=== PATIENT | female | born 1965 | race Caucasian/White ===

== ENCOUNTER 2020-10-30 23:17 | Inpatient (IN) | payer OTHER, SELFPAY ==
[2020-10-30 23:19] VITALS: BP 103/70; PULSE 89; RESP 16; O2SAT 100; BMI 25.3
--- NOTE | 2020-10-30 23:20 | W.ED.LOWEXIN ---
HPI - Extremity Injury (Lower) General: Chief Complaint: Extremity Injury, Lower Stated Complaint: bilateral knee pain/ fall Time Seen by Provider: 10/30/20 23:19 History of Present Illness: HPI Narrative: A 55-year-old female comes in this evening for complaints of injury to the left lower leg. Patient reports tripping and falling over her dog and there travel trailer causing her to hit both knees against the ground and then fall backwards. Patient reports both legs were under her body at that time. Since then patient has noticed swelling to the left lower leg and inability to bear weight comfortably on it. Patient also reports left hip pain and bilateral knee pain. Patient was brought in by EMS and was given 100 mg of fentanyl in route. Patient has a history of gastric bypass, coronary artery disease, and diabetes. Patient last stent was placed in November of last year. Patient does take Metformin and Plavix along with metoprolol and lisinopril. Review of Systems General: Reports: 10 or more systems reviewed and unremarkable except in HPI and below Musc: Reports: other (Bilateral knee pain, left lower leg pain,) PFSH ED PFSH: Medical History (Updated 10/31/20 @ 00:50 by Jax Mack MD) History of coronary artery disease History of fibromyalgia History of hyperlipidemia History of hypertension Non-insulin dependent type 2 diabetes mellitus Surgical History (Updated 10/31/20 @ 00:50 by Jax Mack MD) History of arthroscopy of right knee History of gastric bypass Family History (Updated 10/31/20 @ 00:50 by Jax Mack MD) Other CAD (coronary artery disease) Social History (Updated 10/31/20 @ 00:50 by Jax Mack MD) Smoking and tobacco status: current every day smoker Alcohol intake: current Alcohol intake frequency: holidays/special occasions only Substance/Drug Use: never Physical Exam Const: COMMON NORMALS: no acute distress and patient oriented x3 GENERAL APPEARANCE: cooperative HENMT: COMMON NORMALS: normocephalic and Normal external nose present HEAD & SCALP: normal to inspection and normocephalic NOSE: Normal external nose present MOUTH: Normal oral and palatal mucosa present Eye: GENERAL EYE: appearance normal, both eyes and all related structures Neck/C-Spine: COMMON NORMALS: full ROM Chest: COMMONS NORMALS: normal inspection of the chest Resp: COMMON NORMALS: normal respiratory effort EFFORT & INSPECTION: Yes able to speak in complete sentences Cardio: COMMON NORMALS: regular rate and regular rhythm RATE: regular rate RHYTHM: regular rhythm GI: COMMON NORMALS: non-tender Back/Pelvis: COMMON NORMALS: thoracic and lumbar spine normal to inspection Extremity: NARRATIVE EXTREMITY EXAM: Patient has some mild suprapatellar swelling to bilateral lower knees. Patient also has significant swelling to the left lower leg calf. Pulses are intact distally bilateral. Patient has difficulty with moving left lower leg due to pain. Patient also has some left hip tenderness. Neuro: COMMON NORMALS: patient oriented x3 and moves all extremities Psych: COMMON NORMALS: mental status grossly normal and cooperative Skin: COMMON NORMALS: no rashes or lesions noted GENERAL SKIN EXAM: no rashes or lesions noted Course ED course: 2314 reviewed x-rays with Dr. Kothari he recommended we talk to Dr. Humphresy about fracture. [address] Humphreys suggestions for discharge to home or admission to the hospital. Patient feels that she cannot take care of herself at home due to pain and inability to get up to the bathroom. Consultations: Consultation #1: Discussed with Dr. Humphreys patient's fracture which is a proximal tibial fracture and proximal fibular fracture which fairly good alignment. He recommended splinting and patient could follow-up in the office but if he does not think that she could tolerate pain or be able to care for herself at home he recommended admission to hospitalist and he would plan for surgery on Sunday. Time: 00:01 Time: 00:15 Consultation #3: Discussed with Dr. Munoz for patient to be admitted to care for pain control and displaced tibial fracture with plan for surgical repair on Sunday morning. He agreed to come see the patient for admission. Vital Signs: Vital signs: Vital Signs Pulse Rate 80 10/30/20 23:26 Respiratory Rate 16 10/30/20 23:26 Blood Pressure 103/70 10/30/20 23:26 Pulse Oximetry 100 10/30/20 23:26 MDM - Extremity Injury (Lower) MDM Narrative: Medical decision making narrative: Of injury to the left lower extremity. Patient had fallen over her pet and had landed on both of her knees. Patient had significant discomfort to the left knee. On exam patient has significant swelling to bilateral knees with the left being worse than the right. Patient also had extension of swelling into the left lower leg. Pulses were intact distally. Sensation was intact distally. Patient was unable to bear any weight to the left lower extremity. Differential diagnosis includes but not limited to fracture of the tibia and fibula, hematoma, contusion. X-ray noted a proximal tibial fracture with mild displacement. I reviewed this with Dr. Humphreys, surgical orthopedist, he agreed to surgical care of patient with plan for fracture repair on Sunday. I discussed with patient options about admission or splinting and released to home. Patient felt that she could not care for herself at home and could not control her pain well at home. I reviewed this with the hospitalist who agreed to plan for admission. Discharge Plan Discharge Patient Disposition: Admitted As Inpatient Clinical Impression: Tibia/fibula fracture Qualifiers: Encounter type: initial encounter Fracture type: closed Laterality: left Qualified Code(s): S82.202A - Unspecified fracture of shaft of left tibia, initial encounter for closed fracture Condition: Stable Coding Level of Care Code ED Post Anesthesia Nurse for Miguelina Lopez Exam Comprehensive
--- NOTE | 2020-10-30 23:24 | XRR_ITS ---
PROCEDURE INFORMATION: Exam: XR Left Knee Exam date and time: 10/30/2020 11:24 PM Age: 55 years old Clinical indication: Injury or trauma; Fall; Blunt trauma; Knee; Left; Injury details: Fell today; Additional info: Fall, swelling TECHNIQUE: Imaging protocol: XR Left knee. Views: 1 or 2 views. COMPARISON: No relevant prior studies available. FINDINGS: Bones/joints: The there is acute nondisplaced comminuted fracture of the proximal left tibial metaphysis; There is an acute nondisplaced fracture of the proximal left fibular metaphysis. Soft tissues: Normal. XR/XR knee LT 1-2V [id number] IMPRESSION: 1. Acute comminuted nondisplaced fracture the proximal left tibial metaphysis 2. Acute nondisplaced fracture of proximal left fibular metaphysis
--- NOTE | 2020-10-30 23:24 | XRR_ITS ---
PROCEDURE INFORMATION: Exam: XR Left Tibia and Fibula Exam date and time: 10/30/2020 11:24 PM Age: 55 years old Clinical indication: Injury or trauma; Fall; Blunt trauma; Lower leg; Left; Injury details: Fell today; Additional info: Fall swelling TECHNIQUE: Imaging protocol: XR Left tibia and fibula. Views: 2 views. COMPARISON: No relevant prior studies available. FINDINGS: Bones/joints: There is an oblique nondisplaced fracture proximal left tibial diaphysis. Soft tissues: Normal. XR/XR tibia fibula LT 2V [id number] IMPRESSION: Acute nondisplaced oblique fracture of the proximal left tibial diaphysis.
--- NOTE | 2020-10-30 23:24 | XRR_ITS ---
PROCEDURE INFORMATION: Exam: XR Pelvis Exam date and time: 10/30/2020 11:24 PM Age: 55 years old Clinical indication: Injury or trauma; Fall; Blunt trauma (contusions or hematomas); Does not apply; Pelvic region; Injury details: Fell today TECHNIQUE: Imaging protocol: XR pelvis. Views: 1 or 2 view. COMPARISON: No relevant prior studies available. FINDINGS: Bones/joints: Unremarkable. No acute fracture. Soft tissues: Unremarkable. XR/XR pelvis 1-2V* [id number] IMPRESSION: No acute findings.
--- NOTE | 2020-10-30 23:24 | XRR_ITS ---
PROCEDURE INFORMATION: Exam: XR Right Knee Exam date and time: 10/30/2020 11:24 PM Age: 55 years old Clinical indication: Injury or trauma; Fall; Blunt trauma; Knee; Right; Injury details: Fell today; Additional info: Fall swelling TECHNIQUE: Imaging protocol: XR Right knee. Views: 3 views. COMPARISON: No relevant prior studies available. FINDINGS: Bones/joints: There is a small anterior joint effusion. Soft tissues: Normal. XR/XR knee RT 3V* [id number] IMPRESSION: 1. There are no acute osseous findings. 2. Small anterior joint effusion
[2020-10-30 23:26] VITALS: BP 103/70; PULSE 80; RESP 16; O2SAT 100
[2020-10-30] MEDS: morphine 4 mg/mL SDV 1 mL IVP (23:31)
[2020-10-31] VITALS (20 sets, daily range): BP systolic 127–166; BP diastolic 75–81; PULSE 60–86; RESP 14–19; TEMP 36.4–37; O2SAT 95–100; BMI 28.1
--- NOTE | 2020-10-31 00:45 | PM.HP ---
Providers/Chief Complaint Primary Care Provider: Jacquelyn Jay MD Chief Complaint: bilateral knee pain/ fall History of Present Illness Laisha Taylor is a 55 year old female with a past medical history of CAD status post 6 stents, 3 stents placed in November 2019, on aspirin and Plavix, fibromyalgia, hypertension, hyperlipidemia, GERD, [id number] type 2 diabetes mellitus, who presents [facility] due to fall. Patient tells me that she tripped and fell over her dog, she fell on both her knees, and then fell backwards, denies any preceding lightheadedness, no dizziness, no chest pain, no palpitations, no seizure-like episodes, no strokelike symptoms. She started to notice significant swelling over left lower extremity starting from the knee down to the ankle, she presented to [facility] due to significant left knee pain, inability to bear weight, and the emergency room she was noticed to have a proximal tibial fracture with mild displacement, Dr. Humphreys was consulted, who recommended splint placement, as patient cannot bear any weight, will proceed with surgical intervention on Sunday. Hospitalist team was called for admission, currently patient is received 4 of morphine, pain is well controlled, does have swelling of left knee down to the level of the ankle, denies chest pain, no palpitations, no shortness of breath, no headache, blurry vision, no nausea, vomiting Review of Systems Const: Denies: fever(s), chills, fatigue or malaise Eyes: Denies: change in vision or blurry vision ENMT: Denies: throat pain Card: Denies: chest pain, palpitations, irregular heart rhythm, edema, syncope or pre-syncope Resp: Denies: dyspnea, productive cough, non-productive cough or wheezing GI: Denies: abdominal pain, nausea, vomiting, hematemesis, diarrhea, constipation, hematochezia or melena : Denies: flank pain, dysuria or urinary frequency Musc: Reports: extremity pain and joint pain; Denies: neck pain or back pain Skin/Breast: Denies: rash Neuro: Denies: headache(s), dizziness or vertigo Endo: Denies: polyuria or polydipsia Medications/Allergies Home Medications Medication Instructions Recorded Confirmed Last Taken Type Aspir-81 81 mg PO DAILY 10/31/20 10/31/20 Unknown History Calcium + Vitamin D 1 tab PO DAILY 10/31/20 10/31/20 Unknown History Colace 100 mg PO DAILY 10/31/20 10/31/20 Unknown History Plavix 75 mg PO DAILY 10/31/20 10/31/20 Unknown History Vitamin D3 1 tab PO DAILY 10/31/20 10/31/20 Unknown History atorvastatin 80 mg PO DAILY 10/31/20 10/31/20 Unknown History duloxetine 60 mg PO DAILY 10/31/20 10/31/20 Unknown History gabapentin 800 mg PO TID 10/31/20 10/31/20 Unknown History iron fum-vit C-ascorbate sod 1 tab PO DAILY 10/31/20 10/31/20 Unknown History lisinopril 20 mg PO DAILY 10/31/20 10/31/20 Unknown History magnesium oxide 400 mg PO DAILY 10/31/20 10/31/20 Unknown History metformin 1,000 mg PO BID 10/31/20 10/31/20 Unknown History metoprolol tartrate 25 mg PO BID 10/31/20 10/31/20 Unknown History pantoprazole 40 mg PO DAILY 10/31/20 10/31/20 Unknown History Allergies Allergy/AdvReac Type Severity Reaction Status Date / Time NSAIDS (Non-Steroidal Allergy ADR-Gastrointestinal Verified 10/30/20 23:26 Anti-Inflamma Upset PFSH Acute PFSH: Medical History (Updated 10/31/20 @ 00:50 by Jax Mack MD) History of coronary artery disease History of fibromyalgia History of hyperlipidemia History of hypertension Non-insulin dependent type 2 diabetes mellitus Surgical History (Updated 10/31/20 @ 00:50 by Jax Mack MD) History of arthroscopy of right knee History of gastric bypass Family History (Updated 10/31/20 @ 00:50 by Jax Mack MD) Other CAD (coronary artery disease) Social History (Updated 10/31/20 @ 00:50 by Jax Mack MD) Smoking and tobacco status: current every day smoker Alcohol intake: current Alcohol intake frequency: holidays/special occasions only Substance/Drug Use: never Vitals/I&O/Wt Last Vital Signs Pulse 80 10/30/20 23:26 Resp 16 10/30/20 23:26 BP 103/70 10/30/20 23:26 Pulse Ox 100 10/30/20 23:26 Weight last 48 hrs Weight 73.482 kg Physical Exam Const: COMMON NORMALS: no acute distress and patient oriented x3 GENERAL APPEARANCE: cooperative and comfortable HENMT: COMMON NORMALS: normocephalic HEAD & SCALP: normocephalic Eye: COMMON NORMALS: Equal, round and reactive pupils present and EOMs intact bilaterally GENERAL EYE: appearance normal, both eyes and all related structures PUPIL: Yes Equal, round and reactive pupils present Neck/C-Spine: COMMON NORMALS: full ROM and no lymphadenopathy THYROID: Thyroid normal Lymph: LYMPHATIC: no lymphadenopathy noted Resp: COMMON NORMALS: normal respiratory effort, No retractions, No use of accessory muscles and clear to auscultation bilaterally AUSCULTATION: clear to auscultation bilaterally Cardio: COMMON NORMALS: regular rate, regular rhythm, S1 normal heart sound present and S2 normal heart sound present RATE: regular rate RHYTHM: regular rhythm HEART SOUNDS: S1 normal heart sound present, S2 normal heart sound present and Murmur heart sound present systolic GI: COMMON NORMALS: Normal to inspection, nondistended, normoactive bowel sounds present, Soft to palpation, non-tender and No hepatosplenomegaly present PALPATION: Yes Soft to palpation and Yes No hepatosplenomegaly present Extremity: COMMON NORMALS: no pedal edema NARRATIVE EXTREMITY EXAM: Left lower extremity, swelling, from the knee down to the ankle, left knee swelling, erythema, tenderness Neuro: COMMON NORMALS: patient oriented x3, CN's II-XII intact bilaterally, moves all extremities and no focal motor deficits Psych: COMMON NORMALS: mental status grossly normal, Normal thought process present and cooperative THOUGHT PROCESS: Normal thought process present A&P Assessment and plan (1) Tibia/fibula fracture: Plan -Orthopedic on surgical consult -CBC, CMP, mag, Phos, EKGs, chest x-ray, UA, troponin, BNP -Discuss with surgical service, as patient is on Plavix- -Pain control Dilaudid -PT OT -Plan for surgical intervention on Sunday -Full code -Lovenox for DVT prophylaxis Noninsulin-dependent type 2 diabetes mellitus, continue low-dose sliding scale Hypertension, continue lisinopril, continue metoprolol CAD, continue aspirin, continue Plavix Fibromyalgia, continue home meds Status: Acute Qualifiers: Encounter type: initial encounter Fracture type: closed Laterality: left Qualified Code(s): S82.202A - Unspecified fracture of shaft of left tibia, initial encounter for closed fracture; S82.402A - Unspecified fracture of shaft of left fibula, initial encounter for closed fracture Attestations Medical Necessity Statement*: Patient requires hospitalization, outpatient with observation, for tib-fib fracture Coding Level of Care Code Acute Systems Protection Technician for [facility] Diagnoses Tibia/fibula fracture S82.202A; S82.402A Encounter type: initial encounter Fracture type: closed Laterality: left
--- NOTE | 2020-10-31 01:47 | XRR_ITS ---
PROCEDURE INFORMATION: Exam: XR Chest Exam date and time: 10/31/2020 1:47 AM Age: 55 years old Clinical indication: Patient HX: Fell today no chest complaints; Additional info: Fall TECHNIQUE: Imaging protocol: XR of the chest. Views: 1 view. COMPARISON: No relevant prior studies available. FINDINGS: Lungs: Unremarkable. No consolidation. Pleural spaces: Unremarkable. No pleural effusion. No pneumothorax. Heart/Mediastinum: Unremarkable. No cardiomegaly. Bones/joints: Unremarkable. XR/XR chest 1V portable [id number] IMPRESSION: No acute findings.
[2020-10-31] MEDS: HYDROmorphone 1 mg/mL INJ 1 mL IVP ×4 (02:15→19:51)
--- NOTE | 2020-10-31 02:54 | ECG_ITS ---
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 Measurements Intervals [place] Rate: 75 P: 43 ID: 158 QRS: -16 QRSD: 101 T: 29 QT: 430 QTc: 482 Interpretive Statements SINUS RHYTHM POSSIBLE LATERAL MYOCARDIAL INFARCTION , PROBABLY OLD [30 ms Q WAVE IN I/aVL/V5/V6] Possible old inferior wall [place] No previous ECG available for comparison Electronically Signed On 10-31-2020 18:15:49 CDT by Kenna Michael M.D. [id number]
[2020-10-31] MEDS: enoxaparin 40 mg/0.4 mL Syringe SUBCUT (02:56)
[2020-10-31 02:58] LABS: Troponin(5th) Baseline 10 ng/L (0-10)
[2020-10-31 03:05] LABS: NT Pro B Type Natriuretic Pept 686 pg/mL (0-125)
--- NOTE | 2020-10-31 06:54 | ECG_ITS ---
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 Measurements Intervals [place] Rate: 66 P: 33 TN: 166 QRS: -19 QRSD: 102 T: 14 QT: 411 QTc: 431 Interpretive Statements SINUS RHYTHM INFERIOR MYOCARDIAL INFARCTION , PROBABLY OLD [40+ ms Q WAVE AND/OR ST/T ABNORMALITY IN II/aVF] ANTEROLATERAL MYOCARDIAL INFARCTION , OF INDETERMINATE AGE [40+ ms Q WAVE IN I/aVL/V3-V6] Compared to ECG 10/31/2020 02:29:58 No significant changes Electronically Signed On 10-31-2020 18:16:05 CDT by Kenna Michael M.D. [id number]
[2020-10-31 07:05] LABS: Troponin 5 2HR 10.59 ng/L (0-10)
[2020-10-31 07:10] LABS: Glucose Point of Care 162 mg/dL (70-110)
[2020-10-31 07:53] LABS: Troponin 5 2HR Delta 0.59 ABS# (0-10)
--- NOTE | 2020-10-31 08:14 | P.CONIM_ITS ---
Providers/Reason For Consult Consulting Physician/Specialty*: hospitalist Reason for Consult*: tibia fracture Attending Physician: Danelle Key MD Primary Care Provider: Jacquelyn Jay MD History of Present Illness History of Present Illness Laisha Taylor is a 55 year old female she tripped and fell over her dog, she fell on both her knees, and then fell backwards, denies any preceding lightheadedness, no dizziness, no chest pain, no palpitations, no seizure-like episodes, no strokelike symptoms. She started to notice significant swelling over left lower extremity starting from the knee down to the ankle, she presented to [facility] due to significant left knee pain, inability to bear weight, and the emergency room she was noticed to have a proximal tibial fracture with mild displacement Review of Systems General: Reports: 10 or more systems reviewed and unremarkable except in HPI and below Const: Denies: fever(s), chills, fatigue or malaise Eyes: Denies: change in vision or blurry vision ENMT: Denies: throat pain Card: Denies: chest pain, palpitations, irregular heart rhythm, edema, syncope or pre-syncope Resp: Denies: dyspnea, productive cough, non-productive cough or wheezing GI: Denies: abdominal pain, nausea, vomiting, hematemesis, diarrhea, constipation, hematochezia or melena : Denies: flank pain, dysuria or urinary frequency Musc: Reports: extremity pain, joint pain and other (Bilateral knee pain, left lower leg pain,); Denies: neck pain or back pain Skin/Breast: Denies: rash Neuro: Denies: headache(s), dizziness or vertigo Endo: Denies: polyuria or polydipsia Meds/Allergies Home Medications and Allergies Home Medications Medication Instructions Recorded Confirmed Last Taken Type Aspir-81 81 mg PO DAILY 10/31/20 10/31/20 Unknown History Calcium + Vitamin D 1 tab PO DAILY 10/31/20 10/31/20 Unknown History Colace 100 mg PO DAILY 10/31/20 10/31/20 Unknown History Plavix 75 mg PO DAILY 10/31/20 10/31/20 Unknown History Vitamin D3 1 tab PO DAILY 10/31/20 10/31/20 Unknown History atorvastatin 80 mg PO DAILY 10/31/20 10/31/20 Unknown History duloxetine 60 mg PO DAILY 10/31/20 10/31/20 Unknown History gabapentin 800 mg PO TID 10/31/20 10/31/20 Unknown History iron fum-vit C-ascorbate sod 1 tab PO DAILY 10/31/20 10/31/20 Unknown History lisinopril 20 mg PO DAILY 10/31/20 10/31/20 Unknown History magnesium oxide 400 mg PO DAILY 10/31/20 10/31/20 Unknown History metformin 1,000 mg PO BID 10/31/20 10/31/20 Unknown History metoprolol tartrate 25 mg PO BID 10/31/20 10/31/20 Unknown History pantoprazole 40 mg PO DAILY 10/31/20 10/31/20 Unknown History Allergies Allergy/AdvReac Type Severity Reaction Status Date / Time NSAIDS (Non-Steroidal Allergy ADR-Gastrointestinal Verified 10/30/20 23:26 Anti-Inflamma Upset Current Medications Current Medications Generic Name Dose Route Start Last Admin Trade Name Freq PRN Reason Stop Dose Admin Enoxaparin Sodium 40 mg 10/31/20 01:47 10/31/20 02:56 Enoxaparin 40 Mg/0.4 Ml Syringe SUBCUT 40 mg Q24H EMERALD Administration Hydromorphone HCl 1 mg 10/31/20 01:47 10/31/20 05:47 Hydromorphone 1 Mg/Ml Inj 1 Ml IVP 1 mg Q4H PRN Administration PAIN PFSH Acute PFSH: Medical History (Updated 10/31/20 @ 00:50 by Jax Mack MD) History of coronary artery disease History of fibromyalgia History of hyperlipidemia History of hypertension Non-insulin dependent type 2 diabetes mellitus Surgical History (Updated 10/31/20 @ 00:50 by Jax Mack MD) History of arthroscopy of right knee History of gastric bypass Family History (Updated 10/31/20 @ 00:50 by Jax Mack MD) Other CAD (coronary artery disease) Social History (Updated 10/31/20 @ 00:50 by Jax Mack MD) Smoking and tobacco status: current every day smoker Alcohol intake: current Alcohol intake frequency: holidays/special occasions only Substance/Drug Use: never Vitals/I&O/Wt Last Vital Signs Temp 97.5 F L 10/31/20 07:46 Pulse 79 10/31/20 07:46 Resp 16 10/31/20 07:46 BP 166/81 10/31/20 07:46 Pulse Ox 100 10/31/20 07:46 10/30/20 10/31/20 10/31/20 22:59 06:59 14:59 Output Total 0 / 0 Balance 0 / 0 Weight last 48 hrs Weight 180 lb 9.6 oz Weight 180 lb Weight 162 lb Physical Exam Narrative: EXAM NARRATIVE: CONSTITUTIONAL: The patient is a normal appearing [] in no apparent distress. GENERAL: Patient in no acute distress. CARDIAC: Regular rate and rhythm. CHEST: Normal inspiratory effort, normal respiratory rate. ABDOMEN: Soft and nontender. SKIN: Clear, warm and intact. NEURO?PSYCH: The patient is alert and oriented to person, place and time. Sensorv /SILT Motor StrengthShoulder abduction C5 5/5Wrist extension C6 5/5E lbow extension C7 5/5Hand Pigment Furnace Tender C8 5/5Finger abduction T15/5 Radial/ Ulnar/ Median n intact LowerSensory (SILT)Motor StrengthHin flexion L2/3Ant/inner thigh 5/5Hip adduction L2/3 5/5Knee extension L4 Lat thigh, 5/5Toe dorsiflexion L5 5/5Ankle dorsiflexion L5/ [id number] flexion S1 5/5 DTRBleeps 2+Triceps 2+Brachioradialis 2+Patellar 2+Achilles 2+ MUSCULOSKELETAL: [] UPPEREXTREMITIES: The patient had full active ROM in fingers, wrist, elbow, and shoulder. The patient demonstrated ability to fully flex/extend/abduct/adduct fingers, make ok sign, cross 2nd/3rd digits, extend 1st digit fully.. Radial pulse 2+, CR<2 seconds. LOWER EXTREMITIES: Pt has full, active ROM of toes, Right knee extremely swollen; Left leg in splint moving toes with no pain good capilary refill A&P Assessment and plan (1) Tibia/fibula fracture: Patient has a left proximal tibia fracture. At this point I would like to get a CT scan of her left knee. I will plan to take her to surgery tomorrow. Depending on how swollen she is if she has significant swelling I will have to place her in an external fixator. And then do the definitive treatment 2 weeks later. If the swelling is down enough tomorrow then I can do the definitive treatment tomorrow. Today she needs to get ice on her leg is much as possible. I would also like to get a CT scan of her right knee since she has significant swelling of this knee as well. She should remain nonweightbearing until we get the evaluation of both his knees. 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
[2020-10-31] MEDS: metoprolol tartrate 25 mg Tablet PO ×2 (08:16→20:26)
[2020-10-31] MEDS: duloxetine 60 mg Capsule PO (08:16)
[2020-10-31] MEDS: lisinopril 20 mg Tablet PO (08:16)
[2020-10-31] MEDS: pantoprazole DR 40 mg Tablet PO ×2 (08:16→17:30)
[2020-10-31] MEDS: aspirin 81 mg EC Tablet PO (08:16)
[2020-10-31] MEDS: gabapentin 400 mg Capsule 800 MG PO ×3 (08:16→20:26)
[2020-10-31] MEDS: acetaminophen 325 mg Tablet 650 MG PO (08:17)
[2020-10-31] MEDS: clopidogrel 75 mg Tablet PO (08:20)
--- NOTE | 2020-10-31 08:23 | CTR_ITS ---
PROCEDURE INFORMATION: Exam: CT Left Lower Extremity Without Contrast, Knee Exam date and time: 10/31/2020 8:23 AM Age: 55 years old Clinical indication: Pain; Knee; Left; Additional info: Left tibial plateau fracture TECHNIQUE: Imaging protocol: CT of the Left lower extremity without contrast was performed. Exam focused on the knee. Radiation optimization: All CT scans at this facility use at least one of these dose optimization techniques: automated exposure control; mA and/or kV adjustment per patient size (includes targeted exams where dose is matched to clinical indication); or iterative reconstruction. COMPARISON: CR (LOW EXM, ) 10/30/2020 11:26 PM RADIATION DOSE METRICS: Total DLP (mGy-cm): 180.13 FINDINGS: Bones/joints: Nondisplaced comminuted tibial plateau fracture extending to the articular surface at the tibial spine/lateral tibial plateau. Nondisplaced fracture through the proximal fibula. Associated hemarthrosis. Soft tissues: Normal. CT/CT knee LT wo con* [id number] IMPRESSION: 1. Nondisplaced comminuted tibial plateau fracture with associated hemarthrosis. 2. Nondisplaced fracture through the proximal fibula. Radiation Dose CTDIVOL = (mGy): DLP = 180.13 (mGy-cm)
--- NOTE | 2020-10-31 08:23 | CTR_ITS ---
PROCEDURE INFORMATION: Exam: CT Right Lower Extremity With Contrast, Knee Exam date and time: 10/31/2020 8:23 AM Age: 55 years old Clinical indication: Pain; Knee; Right; Additional info: Severe knee swelling TECHNIQUE: Imaging protocol: CT of the Right lower extremity with intravenous contrast was performed. Exam focused on the knee. Radiation optimization: All CT scans at this facility use at least one of these dose optimization techniques: automated exposure control; mA and/or kV adjustment per patient size (includes targeted exams where dose is matched to clinical indication); or iterative reconstruction. Contrast material: OMNIPAQUE 300; Contrast volume: 95 ml; Contrast route: INTRAVENOUS (IV); COMPARISON: CR (LOW EXM, ) 10/30/2020 11:37 PM RADIATION DOSE METRICS: Total DLP (mGy-cm): 173.21 FINDINGS: Bones/joints: Minimally displaced avulsed fragment of the tibial spine. Associated hemarthrosis. Soft tissues: Normal. CT/CT knee RT w con [id number] IMPRESSION: Minimally displaced avulsed fracture fragment of the tibial spine with associated hemarthrosis. Radiation Dose CTDIVOL = (mGy): DLP = 173.21 (mGy-cm)
[2020-10-31] MEDS: ketorolac 30 mg/mL INJ IVP ×3 (09:23→23:48)
[2020-10-31] MEDS: amlodipine 10 mg Tablet PO (09:24)
--- NOTE | 2020-10-31 09:30 | PC.OT ---
Therapist reviewed OT orders. Patient is currently awaiting additional CT scan as well as surgery tomorrow (11/01) per Dr. Humphreys notes. Will evaluate when appropriate. Keegan Valenzuela OTR/L
[2020-10-31 09:49] LABS: Troponin 5 6HR 10.76 ng/L (0-10); Troponin 5 6HR Delta 0.76 ng/L (0-12)
[2020-10-31 11:08] LABS: Glucose Point of Care 180 mg/dL (70-110)
[2020-10-31] MEDS: HYDROcodone-acetaminophen 5-325 mg Tablet 1 TAB PO ×3 (11:28→20:26)
[2020-10-31] MEDS: nicotine 21 mg Patch 1 PATCH TRANSDERMA (11:29)
[2020-10-31 11:50] LABS: Add Urine Microscopic? YES; Bilirubin Urine Neg (Negative); Blood Urine Neg (Negative); Glucose Urine UA Trace (Normal); Ketones Urine Negative (Negative); Leukocyte Esterase Urine Trace (Negative); Nitrate Urine Negative (Negative); Protein Urine Neg (Negative); Urine Appearance Clear (CLEAR); Urine Color Yellow (Yellow); Urobilinogen Urine Norm (Negative); pH Urine 7 (5-7)
[2020-10-31 11:52] LABS: Add Urine Culture? No; Bacteria Urine TRACE /hpf; Squamous Epithelial Cell Urine 0-4 /hpf (0-5)
--- NOTE | 2020-10-31 12:11 | P.PN_ITS ---
Subjective Subjective: Interval history: Patient seen and examined this morning. She stated that she tripped and fell over her dog and she fell on both her knees and fell backwards. She is unable to bear weight and was found to have proximal tibial fracture with mild displacement. Dr. Darby was consulted from the ER who recommended splint placement. He also ordered left and right leg CT scanning. Plan is to go for surgical intervention on Sunday. Patient states she is not in pain but her pain regiment which was recently changed by Dr. Humphreys. She states if it is not under control she will have the nurse page me again. For now she has no complaints. Her cardiac PCI was November 2019 and she had 3 stents placed and she has been on aspirin and Plavix. Her diabetes mellitus has been well controlled on Metformin. Her last A1c was 6.9. Vitals/I&O/Wt Last Vital Signs Temp 97.9 F 10/31/20 11:38 Pulse 68 10/31/20 11:38 Resp 19 H 10/31/20 11:38 BP 163/81 10/31/20 11:38 Pulse Ox 99 10/31/20 11:38 10/30/20 10/31/20 10/31/20 22:59 06:59 14:59 Intake Total 360 / 360 Output Total 0 / 0 400 / 400 Balance 0 / 0 -40 / -40 Weight last 48 hrs Weight 81.919 kg Weight 81.647 kg Weight 73.482 kg Physical Exam Narrative: EXAM NARRATIVE: General: Alert oriented x3, patient seen laying in bed with left leg wrapped up to thigh. She appears to be in pain when she tries to move in bed. HEENT: Normocephalic, atraumatic, EOMI, breathing room air Cardio: Regular rate rhythm, normal S1-S2, no murmurs rubs gallops, Respiratory: Good bilateral air entry, no wheezes no rhonchi appreciated GI: Abdomen soft, nontender, nondistended, bowel sounds + Behavior: Appropriate and cooperative Extremities: Data very limited exam as patient was in pain when I tried to examine. Left leg was wrapped at bedside and splinted. Right leg appeared nonedematous acyanotic. Left foot. Nonedematous and acyanotic. A&P Assessment and plan (1) Tibia/fibula fracture: Orthopedic: Surgical consult. CT left and right leg pending. We will keep patient n.p.o. overnight for anticipated surgical procedure tomorrow morning. Will follow further recommendations from orthopedic doctor. We will hold Plavix, lisinopril, statin, Lovenox. Will order amlodipine for blood pressure control today. Pain management Diabetes: Jmg-yrprobd-bjwwqiazl type II, patient on low-dose sliding scale. At home she takes Metformin. Last A1c 6.9 as per patient. Hypertension: We will hold lisinopril and switch to amlodipine during hospital stay. Coronary artery disease status post PCI November 2019. Continue aspirin but hold Plavix. Nicotine dependence: Smokes 1 pack/day. Refused nicotine patch when offered. Status: Acute Qualifiers: Encounter type: initial encounter Fracture type: closed Laterality: left Qualified Code(s): S82.202A - Unspecified fracture of shaft of left tibia, initial encounter for closed fracture; S82.402A - Unspecified fracture of shaft of left fibula, initial encounter for closed fracture (2) Hypertension: Status: Acute (3) Diabetes mellitus: Status: Acute (4) Coronary artery disease: Status: Acute (5) Hyperlipidemia: Status: Acute (6) GERD (gastroesophageal reflux disease): Status: Acute Attestations Medical Necessity Statement*: Patient will be going for orthopedic surgery tomorrow morning. 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
[2020-10-31] MEDS: iohexol 300 mg/mL 100 mL Btl IV (14:27)
[2020-10-31 16:44] LABS: Glucose Point of Care 128 mg/dL (70-110)
[2020-10-31 20:39] LABS: Glucose Point of Care 264 mg/dL (70-110)
[2020-11-01] VITALS (30 sets, daily range): BP systolic 118–169; BP diastolic 65–97; PULSE 64–97; RESP 10–22; TEMP 36.3–37.9; O2SAT 93–100
--- NOTE | 2020-11-01 | SCC_ITS ---
Procedure Done: 1. Orif Left tibial plateau fracture 2. Closed treatment right tibial spine 3. Aspiration of Right knee 124.3 seconds of fluoroscopic guidance, for a cumulative dose of 5.78 mGy, was provided to Dr. Humphreys by the radiology department. C-arm images of the LEFT lower leg were saved for the patient's permanent record. [facility]
--- NOTE | 2020-11-01 | XR_ITS ---
WS: [id number] INTRAOPERATIVE TECHNIQUE: 5 Spot fluoroscopic images for intraoperative purposes. FLUOROSCOPY TIME: 124.3 seconds CLINICAL INFORMATION: ORIF COMPARISON: None. FINDINGS: Plate and screw fixation involving the proximal tibia extending to the mid tibial shaft. Hardware debra ears in good position. XR/XR tibia fibula LT 2V [id number] IMPRESSION: Images obtained for intraoperative purposes.
[2020-11-01] MEDS: HYDROcodone-acetaminophen 5-325 mg Tablet 1 TAB PO (04:07)
[2020-11-01] MEDS: HYDROmorphone 1 mg/mL INJ 1 mL IVP ×3 (04:58→20:25)
[2020-11-01 05:16] LABS: Basophils % 0.6 %; Eosinophils # 0.1 10^3/uL (0.0-0.8); Eosinophils % 1.1 %; Hematocrit 27.1 % (37.0-47.0); Hemoglobin 8.5 g/dL (11.5-15.3); Lymphocytes # 1.2 10^3/uL (0.8-4.8); Lymphocytes % 16.3 %; Mean Corpuscular HGB Conc 31.4 g/dL (30.0-36.0); Mean Corpuscular Hemoglobin 25.4 pg (28.0-34.0); Mean Corpuscular Volume 81.1 fl (81-99); Mean Platelet Volume 9.9 fL (7.4-10.4); Monocytes # 0.6 10^3/uL (0.2-0.9); Monocytes % 7.7 %; Neutrophils # 5.28 10^3/uL (1.8-7.7); Nucleated Red Blood Cells % 0 %; Platelet Count 354 10^3/cmm (130-400); Red Blood Count 3.34 10^6/uL (4.1-5.3); Red Cell Distribution Width 18.6 % (12.1-15.1); White Blood Count 7.1 10^3/uL (4.0-10.0)
[2020-11-01 05:26] LABS: INR 0.96 (0.8-1.2)
[2020-11-01 05:31] LABS: Estmated Average Glucose 151; Hemoglobin A1C 6.9 % (4.0-6.0)
[2020-11-01 05:57] LABS: Alanine Aminotransferase 12 U/L (0-33); Albumin Level 2.8 g/dL (3.5-5.2); Alkaline Phosphatase 88 IU/L (35-105); Anion Gap 10.2 (5-19); Aspartate Amino Transferase 11 U/L (0-32); Blood Urea Nitrogen 9 mg/dL (6-20); Carbon Dioxide 27 mmol/L (22-29); Chloride 96 mmol/L (98-107); Globulin 2.6 g/dL (1.3-4.6); Glomerular Filtration Rate 165.7 mL/min (90-130); Glucose 150 mg/dL (65-115); Magnesium 1.5 mg/dL (1.7-2.3); Osmolality Calculated 270 mOsm/kg (285-295); Phosphorus 4.5 mg/dL (2.5-4.5); Potassium 4.2 mmol/L (3.5-5.1); Sodium 129 mmol/L (136-145); Thyroid Stimulating Hormone 0.69 uIU/mL (0.27-4.20); Total Bilirubin 0.2 mg/dL (0.15-1.2); Total Protein 5.4 g/dL (6.6-8.7)
[2020-11-01 06:15] LABS: Glucose Point of Care 192 mg/dL (70-110)
[2020-11-01] MEDS: ketorolac 30 mg/mL INJ IVP ×2 (07:45→17:45)
[2020-11-01] MEDS: gabapentin 400 mg Capsule 800 MG PO ×3 (08:58→20:26)
[2020-11-01] MEDS: metoprolol tartrate 25 mg Tablet PO ×2 (08:59→20:32)
[2020-11-01] MEDS: duloxetine 60 mg Capsule PO (08:59)
[2020-11-01] MEDS: amlodipine 10 mg Tablet PO (08:59)
[2020-11-01] MEDS: pantoprazole DR 40 mg Tablet PO ×2 (08:59→17:43)
--- NOTE | 2020-11-01 09:21 | PC.OT ---
OT EVALUATION HELD UNTIL AFTER SURGERY.
--- NOTE | 2020-11-01 09:51 | W.PM.OPSUD ---
Surgery/Procedure H&P Update DATE OF PROCEDURE: November 01, 2020 DATE H&P PERFORMED: 10/31/20 H&P UPDATE INFORMATION: I have reviewed H&P completed within last 30 days, I have examined patient prior to procedure and No changes to prior documentation PLANNED PROCEDURE: Operation Date: 11/01/20 09:50 Proposed Procedures p ORIF vs Ex Fix left proximal tibia(Left) - Paulo Humphreys DO
--- NOTE | 2020-11-01 10:06 | PC.CHAP ---
Pastoral Care Encounter/Spiritual Assessment Type of Contact [] Declined marine engineering technicians visit [] Patient/Family/Request visit [] Outpatient visit [] Follow-up visit [] Physician referral [] Code/Alert [x] Routine visit [] Staff referral [] Actively dying [] Patient sleeping [] Family support [] [] Out of room [] Palliative care [] [] Receiving care in room [] Pre-surgical visit [] Trauma [] Long length of stay [] ICU visit [] Other: Relational/Emotional Strength [x] Patient feels connected with others/family/visitors/staff [] Distress [] Loneliness/isolation [] Abandonment Spirituality of Patient [x] Person of Nel [] Attends Mormonism of their Nel [x] Believes in Prayer [] Reads Bible or Restorationism materials [] There are Spiritual issues to be addressed Railroad Crossing Protection Maintainer Interventions [x] Prayer [x] Active listening [x] Non-anxious presence [x] Spiritual/emotional support [] Crisis/trauma care [] Spiritual counseling [] Bereavement support [] Provided bereavement packet [] Provided Bible/devotional materials [] Provided toy/stuffed animal, coloring book to patient or family member [] Provided Communion [] Anointing/[place] [] Salvation [x] Completed spiritual assessment [] Other: Impact on Illness or Injury [] Angry [] Fearful [] Anxious [] Often cries [] Exhaustion [] Unable to work [] Unable to attend shinto [] Unable to walk/stand [] Unable to read [] Unable to drive [] Unable to eat/drink [] Unable to sleep [] Unable to be with family [] Patient intubated [] Other: Summary patient has lots mof pai9n ready for suirgert Time spe15 minnt with patient
--- NOTE | 2020-11-01 10:29 | ANES.PREANE2 ---
Pre-Anesthetic Assessment Pre-Anesthetic Assessment: Height/Weight: Height 1.7 m Weight 81.919 kg Temp Pulse Resp BP Pulse Ox 98.1 F 66 18 144/86 100 11/01/20 09:30 11/01/20 09:30 11/01/20 09:30 11/01/20 09:30 11/01/20 09:30 Proposed Procedure: Operation Date: 11/01/20 09:50 Proposed Procedures p ORIF vs Ex Fix left proximal tibia(Left) - Paulo Humphreys, DO Was Beta Anita taken within 24 hours: Yes Was Clonidine taken within 24 hours: N/A Last intake: Intake Last Liquid Date 10/31/20 Last Liquid Time 23:59 Last Solid Date 10/31/20 Last Solid Time 18:00 Social: Social History: Tobacco and No alcohol Exam: Pre-Anes Outpt Exam: alert, oriented x 3 and regular rate & rhythm Airway: Submandibular: WNL Cervical ROM: WNL MP: 2 Dentition: Full Pulmonary: Pulmonary: COPD CV/HEM: CV/HEM: CAD (Stents) and HTN GI: GI: GERD Metabolic: Metabolic: DM and Hyperlipidemia Anesthetic Plan: ASA status: 3 Anesthesia: General Risk of > 500 ml blood loss (7ml/kg in children): No Meds/Allergies Current Medications: Current Medications Generic Name Dose Route Start Last Admin Trade Name Freq PRN Reason Stop Dose Admin Acetaminophen 650 mg 10/31/20 01:47 10/31/20 08:17 Acetaminophen 32 5 Mg Tablet PO 650 mg Q6H PRN Administration Mild/Mod Pain Or Temp >/= 101 Hydrocodone Bitart /Acetaminophen 1 tab 10/31/20 08:20 11/01/20 04:07 Hydrocodone-Acet aminophen 5-325 Mg Tablet PO 1 tab Q4H PRN Administration MODERATE PAIN Amlodipine Besylat e 10 mg 10/31/20 09:00 11/01/20 08:59 Amlodipine 10 Mg Tablet PO 10 mg DAILY EMERALD Administration Aspirin 81 mg 10/31/20 09:00 10/31/20 08:16 Aspirin 81 Mg Ec Tablet PO 81 mg DAILY EMERALD Administration Duloxetine HCl 60 mg 10/31/20 09:00 11/01/20 08:59 Duloxetine 60 Mg Capsule PO 60 mg DAILY EMERALD Administration Gabapentin 800 mg 10/31/20 09:00 11/01/20 08:58 Gabapentin 400 M g Capsule PO 800 mg TID EMERALD Administration Hydromorphone HCl 1 mg 10/31/20 01:47 11/01/20 04:58 Hydromorphone 1 Mg/Ml Inj 1 Ml IVP 1 mg Q4H PRN Administration PAIN Insulin Aspart 0 unit 10/31/20 08:00 11/01/20 08:58 Insulin Aspart 1 00 Unit/1 Ml SUBCUT 4 unit TIDWM EMERALD Administration Protocol Ketorolac Trometha mine 30 mg 10/31/20 08:39 11/01/20 07:45 Ketorolac 30 Mg/ Ml Inj IVP 11/05/20 08:38 30 mg QID PRN Administration PAIN Metoprolol Tartrat e 25 mg 10/31/20 09:00 11/01/20 08:59 Metoprolol Tartr ate 25 Mg Tablet PO 25 mg BID@0900,2100 EMERALD Administration Nicotine 1 patch 10/31/20 11:15 10/31/20 11:29 Nicotine 21 Mg P atch TRANSDERMA 1 patch DAILY EMERALD Administration Pantoprazole Sodiu m 40 mg 10/31/20 09:00 11/01/20 08:[address] 40 Mg Tablet PO 40 mg BID EMERALD Administration PFSH Anesthesia PFSH: Medical History (Updated 10/31/20 @ 15:20 by Danelle Key MD) History of coronary artery disease History of fibromyalgia History of hyperlipidemia History of hypertension Non-insulin dependent type 2 diabetes mellitus Surgical History (Updated 10/31/20 @ 00:50 by Jax Mack MD) History of arthroscopy of right knee History of gastric bypass Family History (Updated 10/31/20 @ 00:50 by Jax Mack MD) Other CAD (coronary artery disease) Social History (Updated 10/31/20 @ 00:50 by Jax Mack MD) Smoking and tobacco status: current every day smoker Alcohol intake: current Alcohol intake frequency: holidays/special occasions only Substance/Drug Use: never Data Anesthesia CBC & Chem 7: 11/01/20 04:46 11/01/20 04:46 Other Labs: Laboratory Results - last 48 hr 10/31/20 10/31/20 10/31/20 02:09 02:09 02:35 WBC RBC Hgb Hct MCV MCH MCHC RDW Plt Count MPV Neut % (Auto) Lymph % (Auto) [facility] % (Auto) Eos % (Auto) Baso % (Auto) Neut # (Auto) Lymph # (Auto) [facility] # (Auto) Eos # (Auto) Baso # (Auto) Nucleated RBC % (auto) Nucleated RBCs # PT INR Sodium Potassium Chloride Carbon Dioxide Anion Gap BUN Creatinine GFR Calculation Glucose POC Glucose Estimat Average Glucose Hemoglobin A1c Calculated Osmolality Calcium Phosphorus Magnesium Total Bilirubin AST ALT Alkaline Phosphatase Troponin T Baseline 10 Troponin T 120 Minute Delta Troponin T Troponin T Hi Sens 6Hr Troponin T Hi Sens 6Hr Delta NT-Pro-B Natriuret Pep 686 H Total Protein Albumin Globulin TSH Urine Color Cancelled Urine Appearance Cancelled Urine pH Cancelled Ur Specific [place] Cancelled Urine Protein Cancelled Urine Glucose (UA) Cancelled Urine Ketones Cancelled Urine Blood Cancelled Urine Nitrate Cancelled Urine Bilirubin Cancelled Prot Sulfosalicylic Acd Cancelled Urine Urobilinogen Cancelled Ur Leukocyte Esterase Cancelled Urine RBC Urine WBC Ur Squamous Epith Cells Amorphous Sediment Urine Bacteria 10/31/20 10/31/20 10/31/20 06:15 06:42 08:48 WBC RBC Hgb Hct MCV MCH MCHC RDW Plt Count MPV Neut % (Auto) Lymph % (Auto) [facility] % (Auto) Eos % (Auto) Baso % (Auto) Neut # (Auto) Lymph # (Auto) [facility] # (Auto) Eos # (Auto) Baso # (Auto) Nucleated RBC % (auto) Nucleated RBCs # PT INR Sodium Potassium Chloride Carbon Dioxide Anion Gap BUN Creatinine GFR Calculation Glucose POC Glucose 162 H Estimat Average Glucose Hemoglobin A1c Calculated Osmolality Calcium Phosphorus Magnesium Total Bilirubin AST ALT Alkaline Phosphatase Troponin T Baseline Troponin T 120 Minute 10.59 H Delta Troponin T 0.59 Troponin T Hi Sens 6Hr 10.76 H Troponin T Hi Sens 6Hr Delta 0.76 NT-Pro-B Natriuret Pep Total Protein Albumin Globulin TSH Urine Color Urine Appearance Urine pH Ur Specific [place] Urine Protein Urine Glucose (UA) Urine Ketones Urine Blood Urine Nitrate Urine Bilirubin Prot Sulfosalicylic Acd Urine Urobilinogen Ur Leukocyte Esterase Urine RBC Urine WBC Ur Squamous Epith Cells Amorphous Sediment Urine Bacteria 10/31/20 10/31/20 10/31/20 10:50 11:03 16:39 WBC RBC Hgb Hct MCV MCH MCHC RDW Plt Count MPV Neut % (Auto) Lymph % (Auto) [facility] % (Auto) Eos % (Auto) Baso % (Auto) Neut # (Auto) Lymph # (Auto) [facility] # (Auto) Eos # (Auto) Baso # (Auto) Nucleated RBC % (auto) Nucleated RBCs # PT INR Sodium Potassium Chloride Carbon Dioxide Anion Gap BUN Creatinine GFR Calculation Glucose POC Glucose 180 H 128 H Estimat Average Glucose Hemoglobin A1c Calculated Osmolality Calcium Phosphorus Magnesium Total Bilirubin AST ALT Alkaline Phosphatase Troponin T Baseline Troponin T 120 Minute Delta Troponin T Troponin T Hi Sens 6Hr Troponin T Hi Sens 6Hr Delta NT-Pro-B Natriuret Pep Total Protein Albumin Globulin TSH Urine Color Yellow Urine Appearance Clear Urine pH 7 Ur Specific [place] 1.010 Urine Protein Neg Urine Glucose (UA) Trace H Urine Ketones Negative Urine Blood Neg Urine Nitrate Negative Urine Bilirubin Neg Prot Sulfosalicylic Acd Urine Urobilinogen Norm Ur Leukocyte Esterase Trace H Urine RBC None Urine WBC 5-10 H Ur Squamous Epith Cells 0-4 H Amorphous Sediment Not Reportable Urine Bacteria Trace 10/31/20 11/01/20 11/01/20 19:39 04:46 04:46 WBC 7.1 RBC 3.34 L Hgb 8.5 L Hct 27.1 L MCV 81.1 MCH 25.4 L MCHC 31.4 RDW 18.6 H Plt Count 354 MPV 9.9 Neut % (Auto) 74.0 Lymph % (Auto) 16.3 [facility] % (Auto) 7.7 Eos % (Auto) 1.1 Baso % (Auto) 0.6 Neut # (Auto) 5.28 Lymph # (Auto) 1.2 [facility] # (Auto) 0.6 Eos # (Auto) 0.1 Baso # (Auto) 0.0 Nucleated RBC % (auto) 0 Nucleated RBCs # 0.0 PT 13.10 INR 0.96 Sodium Potassium Chloride Carbon Dioxide Anion Gap BUN Creatinine GFR Calculation Glucose POC Glucose 264 H Estimat Average Glucose Hemoglobin A1c Calculated Osmolality Calcium Phosphorus Magnesium Total Bilirubin AST ALT Alkaline Phosphatase Troponin T Baseline Troponin T 120 Minute Delta Troponin T Troponin T Hi Sens 6Hr Troponin T Hi Sens 6Hr Delta NT-Pro-B Natriuret Pep Total Protein Albumin Globulin TSH Urine Color Urine Appearance Urine pH Ur Specific [place] Urine Protein Urine Glucose (UA) Urine Ketones Urine Blood Urine Nitrate Urine Bilirubin Prot Sulfosalicylic Acd Urine Urobilinogen Ur Leukocyte Esterase Urine RBC Urine WBC Ur Squamous Epith Cells Amorphous Sediment Urine Bacteria 11/01/20 11/01/20 11/01/20 04:46 04:46 06:12 WBC RBC Hgb Hct MCV MCH MCHC RDW Plt Count MPV Neut % (Auto) Lymph % (Auto) [facility] % (Auto) Eos % (Auto) Baso % (Auto) Neut # (Auto) Lymph # (Auto) [facility] # (Auto) Eos # (Auto) Baso # (Auto) Nucleated RBC % (auto) Nucleated RBCs # PT INR Sodium 129 L Potassium 4.2 Chloride 96 L Carbon Dioxide 27 Anion Gap 10.2 BUN 9 Creatinine 0.4 L GFR Calculation 165.7 H Glucose 150 H POC Glucose 192 H Estimat Average Glucose 151 Hemoglobin A1c 6.9 H Calculated Osmolality 270 L Calcium 8.0 L Phosphorus 4.5 Magnesium 1.5 L Total Bilirubin 0.2 AST 11 ALT 12 Alkaline Phosphatase 88 Troponin T Baseline Troponin T 120 Minute Delta Troponin T Troponin T Hi Sens 6Hr Troponin T Hi Sens 6Hr Delta NT-Pro-B Natriuret Pep Total Protein 5.4 L Albumin 2.8 L Globulin 2.6 TSH 0.69 Urine Color Urine Appearance Urine pH Ur Specific [place] Urine Protein Urine Glucose (UA) Urine Ketones Urine Blood Urine Nitrate Urine Bilirubin Prot Sulfosalicylic Acd Urine Urobilinogen Ur Leukocyte Esterase Urine RBC Urine WBC Ur Squamous Epith Cells Amorphous Sediment Urine Bacteria Cardiac Studies: No Data to Display
[2020-11-01] MEDS: fentaNYL 50 mcg/mL INJ 2mL IVP ×3 (10:30→12:31)
[2020-11-01] MEDS: sodium chloride 0.9% 1,000 ML 30 ML IV ×2 (10:38→12:45)
--- NOTE | 2020-11-01 10:51 | SUR.PREOP ---
patient had cell phone with her in OPS. phone was taken back to 270 and put in top drawer of patient bedside cabinet.
--- NOTE | 2020-11-01 11:52 | PM.OP ---
Operative Report Date of procedure: November 01, 2020 Pre-op Diagnosis: 1. left tibial plateau fracture; 2. Right tibial spine fracture Post-op diagnosis: same Procedure Done: 1. Orif Left tibial plateau fracture 2. Closed treatment right tibial spine 3. Aspiration of Right knee Surgeon: Paulo Humphreys Md Senior Research Scientist: Wojciech Tinajero Md Senior Research Scientist: Wojciech JEROME assisted with retraction and helping me place screws. As well as positioning and closure of the patient. Anesthesia: General Estimated blood loss (mL): 10 Condition: stable Disposition: PACU Procedure: 1. Orif Left tibial plateau fracture 2. Closed treatment right tibial spine 3. Aspiration of right knee Patient is brought to the operative suite placed in the supine position. All areas impingement were well-padded. Patient was then prepped and draped in the normal sterile fashion. Skin incision was made over the lateral aspect of the left tibia. The fascia was split muscles were peeled down and then the appropriate size plate was picked fracture was reduced and the plate was placed submuscularly. Cortical screws were placed proximal and distal to the fracture. AP lateral fluoroscopy ensured that the plate was in preposition and that the fracture was reduced. Multiple locking screws then placed proximal and distal to the fracture. AP lateral fluoroscopy ensured the fracture and hardware were in adequate position. Wounds were then irrigated and the left tibia was closed with 0 Vicryl 2-0 Vicryl and nylon suture. Sterile dressings were applied. The right knee was aspirated and 55 cc of blood were taken out of the right knee. This knee was prepped and draped prior to doing this. And then an 18-gauge needle was then and the knee was then aspirated.
--- NOTE | 2020-11-01 12:06 | P.PN_ITS ---
Subjective Subjective: Interval history: Patient awaiting surgical intervention today Vitals/I&O/Wt Last Vital Signs Temp 98.1 F 11/01/20 09:30 Pulse 66 11/01/20 09:30 Resp 18 11/01/20 09:30 BP 144/86 11/01/20 09:30 Pulse Ox 100 11/01/20 09:30 10/31/20 11/01/20 11/01/20 22:59 06:59 14:59 Intake Total 620 / 1240 60 / 60 Output Total 1400 / 2400 Balance -780 / -1160 60 / 60 Weight last 48 hrs Weight 81.919 kg Weight 81.647 kg Weight 73.482 kg Physical Exam Narrative: EXAM NARRATIVE: Patient was comfortable in her bed EOMI, PERRLA S1, S2 Saturating well on room air Pain bearable Soft abdomen Limited range of motion of lower extremities, left leg was wrapped with compression dressing No audible stridor or wheezing Data : 11/01/20 04:46 11/01/20 04:46 A&P Assessment and plan (1) Tibia/fibula fracture: Status: Acute Qualifiers: Encounter type: initial encounter Fracture type: closed Laterality: left Qualified Code(s): S82.202A - Unspecified fracture of shaft of left tibia, initial encounter for closed fracture; S82.402A - Unspecified fracture of shaft of left fibula, initial encounter for closed fracture (2) Diabetes mellitus: Status: Acute (3) Hypertension: Status: Acute (4) GERD (gastroesophageal reflux disease): Status: Acute (5) Coronary artery disease: Status: Acute Additional A&P Information Left tibial plateau fracture, right tibial spine fracture Plan for ORIF left tibial plateau fracture and closed treatment of right tibial fracture Patient is awaiting surgical intervention today Her Plavix, lisinopril statin and Lovenox was held yesterday her blood pressure is being managed with amlodipine, plan to resume her medications after the procedure Consistent carb diet with sliding scale Metformin held Type 2 diabetes Coronary intervention November 2019 Resume home medication after the intervention Nicotine dependence 1 pack/day, refused nicotine patch DVT prophylaxis as per orthopedics Resume diet after the procedure Full code PT after the procedure Attestations Medical Necessity Statement*: Continue medical management Time Spent in Patient Care: less than 15 minutes Coding Level of Care Code 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
[2020-11-01] MEDS: HYDROmorphone 1 mg/mL INJ 1 mL 0.5 MG IVP (12:42)
[2020-11-01] MEDS: nicotine 21 mg Patch 1 PATCH TRANSDERMA (13:47)
[2020-11-01] MEDS: HYDROcodone-acetaminophen 5-325 mg Tablet PO ×2 (13:57→20:26)
--- NOTE | 2020-11-01 14:39 | PC.RESP ---
SMOKING CESSATION INFORMATION SENT TO PATIENT.
--- NOTE | 2020-11-01 15:28 | ANE.PACU2 ---
Inpatient post-anesthesia follow up: Airway intact: Yes Vital signs: Temperature 99 F Pulse Rate [Monito r] 89 Pulse Rate 91 Respiratory Rate 10 Blood Pressure [Le ft Arm] 103/70 Blood Pressure 155/81 Pulse Oximetry 96 Oxygen Delivery Me thod Nasal Cannula Oxygen Flow Rate 3 Fraction of Inspir ed Oxygen 21 Hydration adequate: Yes Nausea and vomiting: No Pain level: 2 Mental status: Baseline
[2020-11-01 17:31] LABS: Glucose Point of Care 243 mg/dL (70-110)
[2020-11-01 21:13] LABS: Glucose Point of Care 111 mg/dL (70-110)
[2020-11-02] VITALS (14 sets, daily range): BP systolic 123–169; BP diastolic 65–78; PULSE 65–98; RESP 16–19; TEMP 36.6–38.1; O2SAT 95–100
[2020-11-02 02:56] LABS: Basophils % 0.4 %; Eosinophils # 0.1 10^3/uL (0.0-0.8); Eosinophils % 0.6 %; Hematocrit 26.2 % (37.0-47.0); Hemoglobin 8.3 g/dL (11.5-15.3); Lymphocytes # 1.2 10^3/uL (0.8-4.8); Lymphocytes % 11.3 %; Mean Corpuscular HGB Conc 31.7 g/dL (30.0-36.0); Mean Corpuscular Volume 82.1 fl (81-99); Mean Platelet Volume 10.1 fL (7.4-10.4); Monocytes # 0.7 10^3/uL (0.2-0.9); Monocytes % 7.1 %; Neutrophils # 8.42 10^3/uL (1.8-7.7); Neutrophils % 80.2 %; Nucleated Red Blood Cells % 0 %; Platelet Count 345 10^3/cmm (130-400); Red Blood Count 3.19 10^6/uL (4.1-5.3); Red Cell Distribution Width 18.3 % (12.1-15.1); White Blood Count 10.5 10^3/uL (4.0-10.0)
[2020-11-02] MEDS: HYDROcodone-acetaminophen 5-325 mg Tablet PO ×5 (02:56→21:03)
[2020-11-02 03:08] LABS: INR 1.07 (0.8-1.2)
[2020-11-02 03:15] LABS: Alanine Aminotransferase 12 U/L (0-33); Alkaline Phosphatase 96 IU/L (35-105); Anion Gap 13.3 (5-19); Aspartate Amino Transferase 17 U/L (0-32); Blood Urea Nitrogen 6 mg/dL (6-20); Calcium 8.2 mg/dL (8.5-10.5); Carbon Dioxide 27 mmol/L (22-29); Chloride 93 mmol/L (98-107); Globulin 2.9 g/dL (1.3-4.6); Glucose 178 mg/dL (65-115); Magnesium 1.6 mg/dL (1.7-2.3); Osmolality Calculated 270 mOsm/kg (285-295); Phosphorus 3.3 mg/dL (2.5-4.5); Potassium 4.3 mmol/L (3.5-5.1); Sodium 129 mmol/L (136-145); Total Bilirubin 0.3 mg/dL (0.15-1.2); Total Protein 5.9 g/dL (6.6-8.7)
[2020-11-02 06:25] LABS: Glucose Point of Care 257 mg/dL (70-110)
[2020-11-02] MEDS: HYDROmorphone 1 mg/mL INJ 1 mL IVP ×3 (07:16→15:02)
--- NOTE | 2020-11-02 08:07 | PM.PN ---
Subjective Subjective: Interval history: Still needing Dilaudid for breakthrough pain. Patient was sitting up in bed. She is able to bend her right knee however she is unable to put any weight down on it. At this point she is not able to bear weight on either side. Vitals/I&O/Wt Last Vital Signs Temp 99.4 F 11/02/20 04:28 Pulse 89 11/02/20 06:00 Resp 18 11/02/20 07:16 BP 155/78 11/02/20 04:09 Pulse Ox 95 11/02/20 04:09 11/01/20 11/02/20 11/02/20 22:59 06:59 14:59 Intake Total 60 / 1270 60 / 1330 Output Total 3900 / 3903 4200 / 4200 Balance -3840 / -2633 60 / -2573 -4200 / -4200 Physical Exam Narrative: EXAM NARRATIVE: Full range of motion right knee. Left ankle is stiff and sore from surgery. Her dressings are clean dry and intact. Data : 11/02/20 02:25 11/02/20 02:25 A&P Assessment and plan (1) Tibia/fibula fracture: 1. Postop day #1 for a left ORIF tibial plateau 2. Tibial spine fracture on the right. She can weight-bear as tolerated however she will likely not be able to bear weight on this for a while. Due to pain. Discharge planning consider a rehab facility for period of time. 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 Status: Acute Qualifiers: Encounter type: initial encounter Fracture type: closed Laterality: left Qualified Code(s): S82.202A - Unspecified fracture of shaft of left tibia, initial encounter for closed fracture; S82.402A - Unspecified fracture of shaft of left fibula, initial encounter for closed fracture Attestations Medical Necessity Statement*: pain control placement to rehab facility or NH Coding Level of Care Code Acute Studio Musician for Miguelina Lopez Diagnoses Tibia/fibula fracture S82.202A; S82.402A Encounter type: initial encounter Fracture type: closed Laterality: left
[2020-11-02] MEDS: magnesium oxide 400 mg tablet PO (09:24)
[2020-11-02] MEDS: clopidogrel 75 mg Tablet PO (09:24)
[2020-11-02] MEDS: gabapentin 400 mg Capsule 800 MG PO ×3 (09:24→21:03)
[2020-11-02] MEDS: atorvastatin 40 mg Tablet 80 MG PO (09:24)
[2020-11-02] MEDS: pantoprazole DR 40 mg Tablet PO ×2 (09:25→16:44)
[2020-11-02] MEDS: metoprolol tartrate 25 mg Tablet PO ×2 (09:25→21:03)
[2020-11-02] MEDS: lisinopril 20 mg Tablet PO (09:25)
[2020-11-02] MEDS: duloxetine 60 mg Capsule PO (09:25)
[2020-11-02] MEDS: amlodipine 10 mg Tablet PO (09:25)
[2020-11-02] MEDS: aspirin 81 mg EC Tablet PO (09:26)
[2020-11-02] MEDS: docusate sodium 100 mg Capsule PO (09:26)
[2020-11-02] MEDS: nicotine 21 mg Patch 1 PATCH TRANSDERMA (09:26)
[2020-11-02] MEDS: enoxaparin 40 mg/0.4 mL Syringe SUBCUT (09:26)
[2020-11-02 11:39] LABS: Glucose Point of Care 204 mg/dL (70-110)
--- NOTE | 2020-11-02 15:10 | PM.PN ---
Subjective Subjective: Interval history: Patient was seen and examined this morning, she is still requiring as needed IV opioids for her pain management not able to totally bear weight on her legs PT recommended fpc facility, Dr. Humphreys's recommendations appreciated, Patient does want to use Eliquis low-dose in order to prevent clots which she is very afraid of risk of bleeding discussed with the patient with dual antiplatelet therapy Vitals/I&O/Wt Last Vital Signs Temp 98.8 F 11/02/20 11:43 Pulse 78 11/02/20 13:50 Resp 19 H 11/02/20 15:02 BP 143/73 11/02/20 11:43 Pulse Ox 95 11/02/20 15:02 11/02/20 11/02/20 11/02/20 06:59 14:59 22:59 Intake Total 60 / 1330 540 / 540 Output Total 4200 / 4200 Balance 60 / -2573 -3660 / -3660 Physical Exam Narrative: EXAM NARRATIVE: Patient was sitting comfortably in her bed EOMI, PERRLA No neurological deficit S1, S2 Abdomen soft Bilateral breath sounds without audible stridor or wheezing Left leg wrapped with dressing, right leg no swelling or signs of hyperemia or cellulitis No vascular compromise She is able to move toes of left side without any pain Data : 11/02/20 02:25 11/02/20 02:25 A&P Assessment and plan (1) Tibia/fibula fracture: Status: Acute Qualifiers: Encounter type: initial encounter Fracture type: closed Laterality: left Qualified Code(s): S82.202A - Unspecified fracture of shaft of left tibia, initial encounter for closed fracture; S82.402A - Unspecified fracture of shaft of left fibula, initial encounter for closed fracture (2) Coronary artery disease: Status: Acute (3) Diabetes mellitus: Status: Acute (4) Hypertension: Status: Acute (5) GERD (gastroesophageal reflux disease): Status: Acute (6) Hyperlipidemia: Status: Acute Additional A&P Information Postop day 1 Analgesia with p.o. regimen Added bowel regimen, patient is endorsing constipation PT recommended fpc facility Plan to discharge her tomorrow if she gets accepted Postoperative fever 100.5 We will request blood cultures, chest x-ray Consistent carb diet DVT prophylaxis Lovenox Full code Attestations Medical Necessity Statement*: Plan to discharge her tomorrow Time Spent in Patient Care: 16 - 35 minutes Coding Level of Care Code Acute Sap Project Manager for g Fwd Diagnoses Tibia/fibula fracture S82.202A; S82.402A Encounter type: initial encounter Fracture type: closed Laterality: left Coronary artery disease I25.10 Diabetes mellitus E11.9 Hypertension I10 GERD (gastroesophageal reflux disease) K21.9 Hyperlipidemia E78.5
--- NOTE | 2020-11-02 15:18 | XRR_ITS ---
PROCEDURE INFORMATION: Exam: XR Chest Exam date and time: 11/02/2020 3:18 PM Age: 55 years old Clinical indication: Cough and fever; Patient HX: History--knee surgery on Sunday of this week, has a fever, cough, and chest congestion; Additional info: Post op fever TECHNIQUE: Imaging protocol: XR of the chest. Views: 1 view. COMPARISON: CR XR chest 1V portable [id number] 10/31/2020 2:18 AM FINDINGS: Lungs: Faint interstitial opacities are seen in the right upper lobe. A calcified granuloma is again seen in the left upper lobe. The lungs are otherwise clear. Pleural spaces: Unremarkable. No pleural effusion. No pneumothorax. Heart/Mediastinum: Unremarkable. No cardiomegaly. Bones/joints: Unremarkable. XR/XR chest 1V portable [id number] IMPRESSION: Right upper lobe interstitial opacities are noted, which are nonspecific. Mild atypical infectious process or asymmetric edema are considerations.
[2020-11-02] MEDS: sennosides-docusate Tablet 2 TAB PO (16:43)
[2020-11-02] MEDS: polyethylene glycol 3350 Pkt 17 gm PO (16:48)
[2020-11-02] MEDS: sodium chloride 0.9% 1,000 ML 30 ML IV (16:49)
[2020-11-02 17:01] LABS: Glucose Point of Care 135 mg/dL (70-110)
[2020-11-03] VITALS (14 sets, daily range): BP systolic 116–159; BP diastolic 57–79; PULSE 55–94; RESP 16–18; TEMP 36.7–37.3; O2SAT 96–100
[2020-11-03] MEDS: HYDROcodone-acetaminophen 5-325 mg Tablet PO ×5 (01:03→21:09)
[2020-11-03 02:57] LABS: Basophils % 0.5 %; Eosinophils # 0.1 10^3/uL (0.0-0.8); Eosinophils % 1.2 %; Hematocrit 23.4 % (37.0-47.0); Hemoglobin 7.2 g/dL (11.5-15.3); Lymphocytes # 1.9 10^3/uL (0.8-4.8); Mean Corpuscular HGB Conc 30.8 g/dL (30.0-36.0); Mean Corpuscular Hemoglobin 25.5 pg (28.0-34.0); Neutrophils # 5.83 10^3/uL (1.8-7.7); Neutrophils % 66.1 %; Nucleated Red Blood Cells % 0 %; Platelet Count 306 10^3/cmm (130-400); Red Blood Count 2.82 10^6/uL (4.1-5.3); Red Cell Distribution Width 17.9 % (12.1-15.1); White Blood Count 8.8 10^3/uL (4.0-10.0)
[2020-11-03 03:27] LABS: Procalcitonin 0.07 ng/mL (0-0.5)
--- NOTE | 2020-11-03 04:14 | PC.NURSE ---
Notified of hgb dropping from 8.3 to 7.2 and no new orders received at this time.
[2020-11-03 06:31] LABS: Glucose Point of Care 175 mg/dL (70-110)
--- NOTE | 2020-11-03 06:54 | PM.PN ---
Subjective Subjective: Interval history: POD 2 patient up in bed doing much better. She discussed with geriatric social work professor the plan is to go home with her boyfriend. Denies any increased pain in her legs. Denies any shortness of breath or chest pain. Vitals/I&O/Wt Last Vital Signs Temp 98.2 F 11/03/20 04:00 Pulse 76 11/03/20 06:25 Resp 18 11/03/20 04:00 BP 126/71 11/03/20 04:00 Pulse Ox 96 11/03/20 04:00 11/02/20 11/02/20 11/03/20 14:59 22:59 06:59 Intake Total 540 / 540 240 / 780 240 / 1020 Output Total 4200 / 4200 180 / 4380 Balance -3660 / -3660 240 / -3420 60 / -3360 Physical Exam Narrative: EXAM NARRATIVE: Since her healing nicely they are clean and dry. She wiggles all digits 1+ edema in the left lower extremity. Calves are supple no medial thigh tenderness. She wiggles her toes she is able to dorsiflex and plantarflex both ankles. Data : 11/03/20 02:31 11/02/20 02:25 Micro: Microbiology 11/02/20 16:05 Blood Culture - Preliminary Blood SPECIMEN COLLECTED 11/02/20 15:55 Blood Culture - Preliminary Blood SPECIMEN COLLECTED A&P Assessment and plan (1) Tibia/fibula fracture: Status: Acute Qualifiers: Encounter type: initial encounter Fracture type: closed Laterality: left Qualified Code(s): S82.202A - Unspecified fracture of shaft of left tibia, initial encounter for closed fracture; S82.402A - Unspecified fracture of shaft of left fibula, initial encounter for closed fracture Additional A&P Information Continue with physical therapy transferring to wheelchair. Tentative plan would be discharge with home health care tomorrow. Dressing change to the left lower extremity with Xeroform 4 x 4's and Chris wrap. 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
[2020-11-03] MEDS: polyethylene glycol 3350 Pkt 17 gm PO ×2 (09:04→18:19)
[2020-11-03] MEDS: docusate sodium 100 mg Capsule PO (09:04)
[2020-11-03] MEDS: clopidogrel 75 mg Tablet PO (09:04)
[2020-11-03] MEDS: lisinopril 20 mg Tablet PO (09:04)
[2020-11-03] MEDS: sennosides-docusate Tablet 2 TAB PO ×2 (09:04→18:19)
[2020-11-03] MEDS: pantoprazole DR 40 mg Tablet PO ×2 (09:04→18:19)
[2020-11-03] MEDS: gabapentin 400 mg Capsule 800 MG PO ×3 (09:05→20:02)
[2020-11-03] MEDS: duloxetine 60 mg Capsule PO (09:05)
[2020-11-03] MEDS: aspirin 81 mg EC Tablet PO (09:05)
[2020-11-03] MEDS: metoprolol tartrate 25 mg Tablet PO ×2 (09:05→20:03)
[2020-11-03] MEDS: atorvastatin 40 mg Tablet 80 MG PO (09:05)
[2020-11-03] MEDS: nicotine 21 mg Patch 1 PATCH TRANSDERMA (09:06)
[2020-11-03] MEDS: magnesium oxide 400 mg tablet PO (09:06)
[2020-11-03] MEDS: enoxaparin 40 mg/0.4 mL Syringe SUBCUT (09:06)
--- NOTE | 2020-11-03 09:45 | PC.CHAP ---
Pastoral Care Encounter/Spiritual Assessment Type of Contact [] Declined cleaner laboratory equipment visit [] Patient/Family/Request visit [] Outpatient visit [] Follow-up visit [] Physician referral [] Code/Alert [xx] Routine visit [] Staff referral [] Actively dying [] Patient sleeping [] Family support [] [] Out of room [] Palliative care [] [] Receiving care in room [] Pre-surgical visit [] Trauma [] Long length of stay [] ICU visit [] Other: Relational/Emotional Strength [x] Patient feels connected with others/family/visitors/staff [] Distress [] Loneliness/isolation [] Abandonment Spirituality of Patient [x] Person of Nel [] Attends Mandaeism of their Nel [x] Believes in Prayer [] Reads Bible or Worship materials [] There are Spiritual issues to be addressed Instructional Services Specialist Interventions [x] Prayer [] Active listening [] Non-anxious presence [] Spiritual/emotional support [] Crisis/trauma care [] Spiritual counseling [] Bereavement support [] Provided bereavement packet [] Provided Bible/devotional materials [] Provided toy/stuffed animal, coloring book to patient or family member [] Provided Communion [] Anointing/Clio [] Salvation [x] Completed spiritual assessment [] Other: Impact on Illness or Injury [] Angry [] Fearful [] Anxious [] Often cries [] Exhaustion [] Unable to work [] Unable to attend yazidi [] Unable to walk/stand [] Unable to read [] Unable to drive [] Unable to eat/drink [] Unable to sleep [] Unable to be with family [] Patient intubated [] Other: Summary Time spent with patient 10 min
[2020-11-03 11:08] LABS: Glucose Point of Care 255 mg/dL (70-110)
[2020-11-03 12:17] LABS: Hematocrit 23.2 % (37.0-47.0); Hemoglobin 7.1 g/dL (11.5-15.3)
--- NOTE | 2020-11-03 13:24 | P.PN_ITS ---
Subjective Subjective: Interval history: Notice drop in hemoglobin, repeat H&H 10.1 We will transfuse 1 unit PRBC, plan to discharge her tomorrow Home health services and equipment to be arranged today Did talk with Dr. Humphreys who is okay to discharge her today as well but considering drop in hemoglobin I would like to monitor her 1 more day There is no active source of bleeding I discontinued her normal saline which I started for her hyponatremia, patient is stating that she drinks a lot of water and her sodium usually gets low because of that Patient is still endorsing constipation despite aggressive bowel regimen yesterday Vitals/I&O/Wt Last Vital Signs Temp 98.0 F 11/03/20 11:18 Pulse 76 11/03/20 11:18 Resp 17 11/03/20 11:18 BP 156/78 11/03/20 11:18 Pulse Ox 99 11/03/20 11:18 11/02/20 11/03/20 11/03/20 22:59 06:59 14:59 Intake Total 240 / 780 240 / 1020 480 / 480 Output Total 180 / 4380 Balance 240 / -3420 60 / -3360 480 / 480 Physical Exam Narrative: EXAM NARRATIVE: Sitting comfortably EOMI, PERRLA No active bleeding Left leg less swollen wrapped in dressing Able to move her toes No active chest pain S1, S2 No audible stridor or wheezing saturating well on room air Abdomen soft No neurological deficits Data : 11/03/20 12:11 11/02/20 02:25 Micro: Microbiology 11/02/20 16:05 Blood Culture - Preliminary Blood SPECIMEN COLLECTED 11/02/20 15:55 Blood Culture - Preliminary Blood SPECIMEN COLLECTED A&P Assessment and plan (1) Tibia/fibula fracture: Status: Acute Qualifiers: Encounter type: initial encounter Fracture type: closed Laterality: left Qualified Code(s): S82.202A - Unspecified fracture of shaft of left tibia, initial encounter for closed fracture; S82.402A - Unspecified fracture of shaft of left fibula, initial encounter for closed fracture (2) Coronary artery disease: Status: Acute (3) Diabetes mellitus: Status: Acute (4) Hypertension: Status: Acute (5) GERD (gastroesophageal reflux disease): Status: Acute (6) Acute blood loss as cause of postoperative anemia: Status: Acute Additional A&P Information Postop day 2 Home health services to be arranged History of coronary disease on aspirin and Plavix Hypertension GERD History of gastric bypass History of GI bleed DVT prophylaxis with Lovenox Postoperative anemia and fever Plan is to keep her here 1 more day as her hemoglobin has dropped to 7.1 without active source of bleeding, postoperative anemia Will request FOBT when she is able to have a bowel movement Constipation, aggressive bowel regimen 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 engineer account manager diligently working with her to get her set up with appropriate equipment for home access program, outpatient physical therapy and home health I would discontinue Lovenox and Plavix requested FOBT Most likely she will be discharged tomorrow morning if hemoglobin stays stable Cultures are negative, she did not spike fever after her first episode 100.5, Chest imaging unremarkable PT recommendations appreciated Hyponatremia secondary to increased fluid intake, discontinue normal saline, will add salt tablet she will benefit from fluid restriction instead of fluid resuscitation Attestations Medical Necessity Statement*: Anticipating discharge tomorrow Time Spent in Patient Care: 16 - 35 minutes Coding Level of Care Code Acute Long Term Care [facility] Diagnoses Tibia/fibula fracture S82.202A; S82.402A Encounter type: initial encounter Fracture type: closed Laterality: left Coronary artery disease I25.10 Diabetes mellitus E11.9 Hypertension I10 GERD (gastroesophageal reflux disease) K21.9 Acute blood loss as cause of postoperative anemia D62
--- NOTE | 2020-11-03 13:32 | CT_ITS ---
WS: [id number] CT CHEST TECHNIQUE: Noncontrast CT of the chest with coronal and sagittal reformatted images. CLINICAL INFORMATION: post op fever COMPARISON: None. DLP: 740.[address] scans at [facility] use at least one of these dose optimization techniques: automated e xposure control; mA and/or kV adjustment per patient size (includes targeted exams where dose is matc hed to clinical indication); or iterative reconstruction. FINDINGS: Prior postoperative changes bilateral breast implants. Ectatic ascending thoracic aorta measuring 4.1 CM. Normal aortic arch and descending thoracic aorta. Coronary calcification. No mediastinal or adam r lymphadenopathy. No axillary lymphadenopathy.Both lungs are well aerated. No acute pulmonary infilt rates. No consolidation or pleural fluid. Noncalcified tiny nodule right upper lobe measuring 4 mm. A few calcified granulomas. Cholecystectomy clips. Prior postoperative changes at the GE junction. Small left adrenal adenoma sami suring 16 mm. Right adrenal gland is normal. Fatty atrophy of the pancreas. Mild thoracic curve. Thoracic kyphosis with hypertrophic changes. CT/CT chest wo con [id number] IMPRESSION: 1. No acute pulmonary infiltrates. No focal pneumonia or pleural fluid. 2. Ectatic ascending thoracic aorta measuring 4.1 cm. 3. Postoperative changes at the GE junction involving the stomach partially vi sualized. 4. Left adrenal adenoma. 5. Cholecystectomy clips. 6. Postoperative changes bilateral breast implants.
[2020-11-03] MEDS: sennosides 8.6 mg Tablet 17.2 MG PO (14:16)
[2020-11-03] MEDS: FUROsemide 10 mg/mL SDV 4mL 40 MG IVP (14:25)
[2020-11-03] MEDS: ketorolac 30 mg/mL INJ IVP (14:26)
[2020-11-03 16:27] LABS: Glucose Point of Care 114 mg/dL (70-110)
[2020-11-03] MEDS: sodium chloride 0.9% (100 ml) 100 ML 10 ML (17:40)
[2020-11-03] MEDS: amoxicillin-clav 875-125 mg Tablet 1 TAB PO (18:19)
[2020-11-03 21:22] LABS: Glucose Point of Care 203 mg/dL (70-110)
[2020-11-04] VITALS: BP 152/78; PULSE 73; RESP 16; TEMP 36.4; O2SAT 99
[2020-11-04] MEDS: HYDROcodone-acetaminophen 5-325 mg Tablet PO ×3 (01:28→09:30)
[2020-11-04 02:35] LABS: Basophils # 0.1 10^3/uL (0.0-0.1); Basophils % 0.6 %; Eosinophils # 0.1 10^3/uL (0.0-0.8); Eosinophils % 1.5 %; Hematocrit 25.4 % (37.0-47.0); Hemoglobin 8.2 g/dL (11.5-15.3); Lymphocytes # 1.8 10^3/uL (0.8-4.8); Lymphocytes % 22.2 %; Mean Corpuscular HGB Conc 32.3 g/dL (30.0-36.0); Mean Corpuscular Hemoglobin 26.6 pg (28.0-34.0); Mean Corpuscular Volume 82.5 fl (81-99); Mean Platelet Volume 9.5 fL (7.4-10.4); Monocytes # 0.7 10^3/uL (0.2-0.9); Monocytes % 9.1 %; Neutrophils % 66.3 %; Nucleated Red Blood Cells % 0 %; Platelet Count 322 10^3/cmm (130-400); Red Blood Count 3.08 10^6/uL (4.1-5.3); Red Cell Distribution Width 17.1 % (12.1-15.1)
[2020-11-04 02:55] LABS: Anion Gap 13.7 (5-19); Blood Urea Nitrogen 7 mg/dL (6-20); Calcium 8.1 mg/dL (8.5-10.5); Carbon Dioxide 26 mmol/L (22-29); Chloride 93 mmol/L (98-107); Glomerular Filtration Rate 165.7 mL/min (90-130); Glucose 153 mg/dL (65-115); Osmolality Calculated 269 mOsm/kg (285-295); Potassium 3.7 mmol/L (3.5-5.1); Sodium 129 mmol/L (136-145)
[2020-11-04 04:00] VITALS: BP 151/74; PULSE 74; RESP 16; TEMP 36.4; O2SAT 98
[2020-11-04 06:37] LABS: Glucose Point of Care 162 mg/dL (70-110)
[2020-11-04] MEDS: ketorolac 30 mg/mL INJ IVP (07:28)
--- NOTE | 2020-11-04 07:43 | PM.PN ---
Subjective Subjective: Interval history: POD 3 patient some discomfort in her left lower extremity mainly around the left knee. She admits she is not been elevating it as much she needs to. Denies any shortness of breath or chest pain. Vitals/I&O/Wt Last Vital Signs Temp 97.6 F 11/04/20 04:00 Pulse 74 11/04/20 04:00 Resp 16 11/04/20 04:00 BP 151/74 11/04/20 04:00 Pulse Ox 98 11/04/20 04:00 11/03/20 11/04/20 11/04/20 22:59 06:59 14:59 Intake Total 1550 / 2510 480 / 2990 Output Total 1300 / 1300 Balance 250 / 1210 480 / 1690 Physical Exam Narrative: EXAM NARRATIVE: Dressings clean and dry on the left lower extremity 1+ edema in the left foot. Pulses are palpable. She is able to wiggle her toes dorsiflex and plantarflex the left foot. Data : 11/04/20 02:20 11/04/20 02:20 Micro: Microbiology 11/03/20 20:55 Occult Blood (FIT) - Final Stool Routine Collection 11/02/20 16:05 Blood Culture - Preliminary Blood NEGATIVE TO DATE 11/02/20 15:55 Blood Culture - Preliminary Blood NEGATIVE TO DATE A&P Assessment and plan (1) Tibia/fibula fracture: Status: Acute Qualifiers: Encounter type: initial encounter Fracture type: closed Laterality: left Qualified Code(s): S82.202A - Unspecified fracture of shaft of left tibia, initial encounter for closed fracture; S82.402A - Unspecified fracture of shaft of left fibula, initial encounter for closed fracture (2) Acute blood loss as cause of postoperative anemia: Status: Acute Additional A&P Information Encouraged her to continue to ice and elevate the left lower extremity and repositioned her with toes above her nose. Encourage her to continue with incentive spirometry. Hydrocodone has been providing her good relief. We will see her back in the office in 2 weeks time for staple removal. Encouraged her to call the office if she is having problems. Will defer to the medical team for continued management. Attestations Medical Necessity Statement*: Defer to primary medical team Coding Level of Care Code Acute Clinical Nursing Director for [facility] F[facility] Diagnoses Tibia/fibula fracture S82.202A; S82.402A Encounter type: initial encounter Fracture type: closed Laterality: left Acute blood loss as cause of postoperative anemia D62
[2020-11-04 08:00] VITALS: BP 148/78; PULSE 70; RESP 16; TEMP 36.5; O2SAT 98
[2020-11-04] MEDS: amoxicillin-clav 875-125 mg Tablet 1 TAB PO (08:31)
[2020-11-04] MEDS: magnesium oxide 400 mg tablet PO (08:31)
[2020-11-04] MEDS: atorvastatin 40 mg Tablet 80 MG PO (08:32)
[2020-11-04] MEDS: aspirin 81 mg EC Tablet PO (08:32)
[2020-11-04] MEDS: pantoprazole DR 40 mg Tablet PO (08:32)
[2020-11-04] MEDS: gabapentin 400 mg Capsule 800 MG PO (08:32)
[2020-11-04] MEDS: duloxetine 60 mg Capsule PO (08:32)
[2020-11-04] MEDS: lisinopril 20 mg Tablet PO (08:32)
[2020-11-04] MEDS: nicotine 21 mg Patch 1 PATCH TRANSDERMA (08:33)
[2020-11-04] MEDS: metoprolol tartrate 25 mg Tablet PO (08:38)
--- NOTE | 2020-11-04 11:23 | P.DS_ITS ---
Discharge Providers Date of Admission: 11/02/20 07:41 Date of Discharge: November 04, 2020 Attending Provider at Admission: Jax Mack MD Attending Provider at Discharge: Malina Singh MD Primary Care Provider: Jacquelyn Jay MD Diagnoses at Discharge Discharge Diagnosis (1) Tibia/fibula fracture: Status: Acute Qualifiers: Encounter type: initial encounter Fracture type: closed Laterality: left Qualified Code(s): S82.202A - Unspecified fracture of shaft of left tibia, initial encounter for closed fracture; S82.402A - Unspecified fracture of shaft of left fibula, initial encounter for closed fracture (2) Acute blood loss as cause of postoperative anemia: Status: Acute Reason for Visit Reason for Visit: bilateral knee pain/ fall Hospital Course Hospital Course Laisha Taylor is a 55 year old female with a past medical history of CAD status p ost 6 stents, 3 stents placed in November 2019, on aspirin and Plavix, fibromyalgia, hypertension, hyperlipidemia, GERD, [id number] type 2 diabetes mellitus, who presents [facility] due to fall. Patient tells me that she tripped and fell over her dog, she fell on both her knees, and then fell backwards. She was diagnosed with left tibial plateau fracture and right tibial spine fracture. Underwent open reduction internal fixation of left tibial plateau fracture and closed treatment of right tibial spine fracture On 11/01, Dr. Humphreys asked her to follow-up within 2 weeks, she was prescribed Eliquis 2.5 mg twice a day regimen for DVT prophylaxis along her aspirin and Plavix. We did discuss risk factors such as GI bleed especially with the previous history of gastric bypass and bleeding with aspirin, she cannot be off those dual antiplatelet therapy for now, patient was explained all the benefits and complications of adding Eliquis to dual antiplatelet therapy, she opted for Eliquis 2.5 mg twice daily regimen. She was instructed to stop taking Eliquis if she notices bleeding. She is being discharged home with home health services and outpatient skilled therapy. Of note, her sodium has stayed low 129 which is secondary to increased fluid intake, with normal saline it did not improve at all, patient was instructed to take regular diet add salt to her diet and cut down on fluid intake. Postoperatively her hemoglobin did reduce and she received 1 unit PRBC no active GI bleed. (10 mL blood loss during surgery and 55 cc of blood were taken of the right knee). In postoperative time period she developed low-grade fever, she was given a dose of Augmentin, CT chest was requested which showed no acute pathological findings, aortic aneurysm 4.1 cm, patient's blood pressure remained stable. No signs of pneumonia. She did not require oxygen. Physical Exam Narrative: EXAM NARRATIVE: Sitting comfortably EOMI, PERRLA No active bleeding Left leg less swollen wrapped in dressing Able to move her toes No active chest pain S1, S2 No audible stridor or wheezing saturating well on room air Abdomen soft No neurological deficits Discharge Data Data Completed and Pending: Completed Studies During Hospitalization Category Date Time Status CT chest wo con 7 1250 Routine Cat Scan 11/03/20 13:[address] knee LT wo con * [id number] Routine Cat Scan 10/31/20 08:[address] knee RT w con [id number] Routine Cat Scan 10/31/20 08:23 Completed XR chest 1V chandra ble [id number] Routine Exams 10/31/20 01:47 Completed XR chest 1V chandra ble [id number] Routine Exams 11/02/20 15:18 Completed XR knee LT 1-2V 7 3560 Stat Exams 10/30/20 23:24 Completed XR knee RT 3V* 73 562 Stat Exams 10/30/20 23:24 Completed XR pelvis 1-2V* 7 2170 Stat Exams 10/30/20 23:24 Completed XR tibia fibula L T 2V 97884 Routine Exams 11/01/20 Completed XR tibia fibula L T 2V 19893 Stat Exams 10/30/20 23:24 Completed Pending at discharge Category Date Time Status Blood Culture Sta t Lab 11/02/20 16:05 Results Labs from last 24 hours 11/04/20 11/04/20 11/04/20 06:32 02:20 02:20 WBC 8.0 RBC 3.08 L Hgb 8.2 L Hct 25.4 L MCV 82.5 MCH 26.6 L MCHC 32.3 RDW 17.1 H Plt Count 322 MPV 9.5 Neut % (Auto) 66.3 Lymph % (Auto) 22.2 [place] % (Auto) 9.1 Eos % (Auto) 1.5 Baso % (Auto) 0.6 Neut # (Auto) 5.30 Lymph # (Auto) 1.8 [place] # (Auto) 0.7 Eos # (Auto) 0.1 Baso # (Auto) 0.1 Nucleated RBC % (a uto) 0 Nucleated RBCs # 0.0 Sodium 129 L Potassium 3.7 Chloride 93 L Carbon Dioxide 26 Anion Gap 13.7 BUN 7 Creatinine 0.4 L GFR Calculation 165.7 H Glucose 153 H POC Glucose 162 H Calculated Osmolal ity 269 L Calcium 8.1 L Blood Type Rho(D) Type Antibody Screen Crossmatch 11/03/20 11/03/20 11/03/20 21:08 16:13 14:20 WBC RBC Hgb Hct MCV MCH MCHC RDW Plt Count MPV Neut % (Auto) Lymph % (Auto) [place] % (Auto) Eos % (Auto) Baso % (Auto) Neut # (Auto) Lymph # (Auto) [place] # (Auto) Eos # (Auto) Baso # (Auto) Nucleated RBC % (a uto) Nucleated RBCs # Sodium Potassium Chloride Carbon Dioxide Anion Gap BUN Creatinine GFR Calculation Glucose POC Glucose 203 H 114 H Calculated Osmolal ity Calcium Blood Type A Positive Rho(D) Type Positive Antibody Screen Negative Crossmatch See Detail 11/03/20 12:11 WBC RBC Hgb 7.1 L Hct 23.2 L MCV MCH MCHC RDW Plt Count MPV Neut % (Auto) Lymph % (Auto) [place] % (Auto) Eos % (Auto) Baso % (Auto) Neut # (Auto) Lymph # (Auto) [place] # (Auto) Eos # (Auto) Baso # (Auto) Nucleated RBC % (a uto) Nucleated RBCs # Sodium Potassium Chloride Carbon Dioxide Anion Gap BUN Creatinine GFR Calculation Glucose POC Glucose Calculated Osmolal ity Calcium Blood Type Rho(D) Type Antibody Screen Crossmatch Vitals: Last Vital Signs Temp 97.7 F 11/04/20 08:00 Pulse 70 11/04/20 08:00 Resp 16 11/04/20 08:00 BP 148/78 11/04/20 08:00 Pulse Ox 98 11/04/20 08:00 Discharge Plan Discharge Patient Disposition: Home Health Service Condition: Stable Prescriptions: New hydrocodone-acetaminophen 5-325 mg tablet 1 - 2 tab PO .Q4-6H Qty: 40 RF: 0 oxycodone 5 mg tablet 5 mg PO Q8H PRN (Reason: pain) Qty: 20 RF: 0 Senna Plus 8.6-50 mg capsule 1 tab-cap PO BID Qty: 30 RF: 0 Eliquis 2.5 mg tablet 2.5 mg PO BID Qty: 60 RF: 0 Continued Aspir-81 81 mg PO DAILY RF: 0 Calcium + Vitamin D 1 tab PO DAILY RF: 0 Colace 100 mg PO DAILY RF: 0 Plavix 75 mg PO DAILY RF: 0 Vitamin D3 1 tab PO DAILY RF: 0 atorvastatin 80 mg PO DAILY RF: 0 duloxetine 60 mg PO DAILY RF: 0 gabapentin 800 mg PO TID RF: 0 iron fum-vit C-ascorbate sod 1 tab PO DAILY RF: 0 lisinopril 20 mg PO DAILY RF: 0 magnesium oxide 400 mg PO DAILY RF: 0 metformin 1,000 mg PO BID RF: 0 metoprolol tartrate 25 mg PO BID RF: 0 pantoprazole 40 mg PO DAILY RF: 0 Discharge Orders: Discharge Order (Routine); Ordered 11/04/20 Ordered By: Malina Singh Other Ambulatory Orders: DME: Commode (Order) Location: None Selected Ordered By: Malina Singh DME: Shower Chair (Order) Location: None Selected Ordered By: Malina Singh DME: Walker (Order) Location: None Selected Ordered By: Malina Singh DME: Wheelchair (Order) Location: None Selected Ordered By: Mailna Singh Referrals: Paulo Humpherys DO [Physician] - 11/18/20 9:30 am Jacquelyn Jay MD [Primary Care Provider] - 1-3 days Discharge Diet: Advance as tolerated and Regular Discharge Activity: Increase activity as tolerated and As per PT/OT instructions Patient Instructions: Hydrocodone/Acetaminophen (By mouth), Oxycodone/Acetaminophen (By mouth), Laxative, Stool Softeners (By mouth), Apixaban (By mouth), Opioid Safety Activity Restrictions/Additional Instructions: You are being discharged from the hospital today during which time you have been under the care of Dr Humphreys. You had a Left tibial plateau fracture and a right tibial spine fracture. You were treated for this injury with ORIF left tibial plateau. You may resume you normal diet (including any special diets as directed by your primary doctor) as well as your home medications. You should follow up with you primary doctor if you have any questions regarding medication you took prior to your stay in the hospital. You may take your pain medication as prescribed. After the first few days, take your pain medication as needed. Do not drive or drink alcohol while taking your pain medication. Your injury may increase your risk of developing a blood clot,or DVT, in your arm or leg. This could potentially dislodge and travel to your lungs and become a life threatening condition called apulmonary embolus,or PE. You have been prescribed eliquis to be taken to prevent this. Frequent movement of the toes and ankles will also help prevent this from occurring. If you develop any new or worsening cough, chestpain, bloody sputum or shortness of breath, call 911 or go to the EmergencyRoom. Always keep your surgical incision/dressing clean and dry. If you experience increasing pain at your incision site, redness, swelling, increasing discharge, foul odors, or fevers (greater than 100.4), night sweats or chills you should call the office at the above number. If you feel this is an emergency you should be evaluated in the Emergency Department of a nearby hospital. Orthopedic Patient Instructions Summary: Weight Bearing: NWB LLE, WBAT RLE Activity: as tolerated. Diet: regular. Wound Care: Keep dressing clean and dry. change daily Anticoagulation: eliquis 2.5mg bid QD for 1 month Pain Medication: Take only as needed. Ice, rest and elevation will be of great benefit. Please plan to follow-up wllori Humphreys in 2 weeks. You will need to call the clinic [phone] to schedule this visit. Thank you far allowing me to participate in your care. Do not hesitate to call the office with any questions or concerns. Discharge Attestations Time Spent in Discharge Care*: less than 30 min Quality Metrics Clinical Quality Measures During this hospital stay, did patient experience: None Coding Level of Care Code Acute [facility] note Diagnoses Tibia/fibula fracture S82.202A; S82.402A Encounter type: initial encounter Fracture type: closed Laterality: left Acute blood loss as cause of postoperative anemia D62
[2020-11-04 11:39] VITALS: BP 137/76; PULSE 60; RESP 16; TEMP 36.6; O2SAT 97
[2020-11-04 12:05] LABS: Glucose Point of Care 167 mg/dL (70-110)
[2020-11-04 12:59] VITALS: BP 137/76; PULSE 60; RESP 16; TEMP 36.6; O2SAT 97
--- NOTE | 2020-11-05 10:27 | PC.SOCIAL ---
discharge follow up call made. spoke with patient. she is having quiet a bit of pain after all the movement yesterday with getting home. patient has leg elevated with ice in place at this time. she is taking all new prescriptions as directed. patient was concerned with dressing change. board writer spoke with nurse at Dr. Humphreys's office. advised patient to removed dressing, she may shower, just not to soak in a tub. keep it clean and dry, may leave open to air but if there is drainage cover with a non stick dressing. advised pt is it becomes red, swollen or any drainage to contact dr. humphreys's office for a nurse visit to assess incision. patient is aware of follow up appointment date and time with dr. humphreys.
--- NOTE | 2020-11-05 15:39 | PC.RESP ---
SMOKING CESSATION INFORMATION SENT TO PATIENT.
== END 2020-11-04 12:25 | disposition home or self-care (01) | DRG 493 ==
LOC: ER 10-31 00:22 → MEDSURG 10-31 01:08
PROVIDERS: Internal Medicine; Orthopaedic Surgery; Admitting Provider Family Medicine; Emergency Provider Nurse Practitioner Family; PCP Family Medicine; Visit Provider Internal Medicine
PROC: 0QSK04Z Reposition Left Fibula with Internal Fixation Device, Open Approach (ICD-10-PCS; CPT 27828; principal; 2020-11-01 09:45)
DX: S82.142A Displaced bicondylar fracture of left tibia, initial encounter for closed fracture (principal); D62 Acute posthemorrhagic anemia; W01.0XXA Fall on same level from slipping, tripping and stumbling without subsequent striking against object, initial encounter; Z98.84 Bariatric surgery status; I25.10 Atherosclerotic heart disease of native coronary artery without angina pectoris; Z95.5 Presence of coronary angioplasty implant and graft; E11.9 Type 2 diabetes mellitus without complications; E78.5 Hyperlipidemia, unspecified; M79.7 Fibromyalgia; I10 Essential (primary) hypertension; F17.210 Nicotine dependence, cigarettes, uncomplicated; K59.00 Constipation, unspecified; Z79.82 Long term (current) use of aspirin; Z79.02 Long term (current) use of antithrombotics/antiplatelets; Z79.84 Long term (current) use of oral hypoglycemic drugs; M25.461 Effusion, right knee
CPT/HCPCS: 36415; 36416; 36430; 71045; 71250; 72170; 73560; 73562; 73590; 73700; 73701; 76000; 80048; 80053; 81001; 82274; 82962; 83036; 83735; 83880; 84100; 84145; 84443; 84484; 85014; 85018; 85025; 85610; 86850; 86900; 86920; 87040; 93005; 94664; 96372; 96374; 97110; 97161; 97165; 97530; 97535; 99285; C1713; G0378; J0690; J1170; J1650; J1815; J1885; J1940; J2270; J2370; J2704; J3010; J7030; P9016; Q9967

== ENCOUNTER 2020-11-18 10:43 | Outpatient (CLI) | payer OTHER, SELFPAY ==
[2020-11-18 11:24] LABS: Basophils # 0.1 10^3/uL (0.0-0.1); Eosinophils # 0.2 10^3/uL (0.0-0.8); Eosinophils % 2.3 %; Hematocrit 32.4 % (37.0-47.0); Hemoglobin 9.7 g/dL (11.5-15.3); Lymphocytes # 2.2 10^3/uL (0.8-4.8); Lymphocytes % 28.2 %; Mean Corpuscular HGB Conc 29.9 g/dL (30.0-36.0); Mean Corpuscular Hemoglobin 26.4 pg (28.0-34.0); Mean Corpuscular Volume 88.3 fl (81-99); Monocytes # 0.5 10^3/uL (0.2-0.9); Monocytes % 6.4 %; Neutrophils # 4.88 10^3/uL (1.8-7.7); Neutrophils % 61.7 %; Nucleated Red Blood Cells % 0 %; Platelet Count 834 10^3/cmm (130-400); Red Blood Count 3.67 10^6/uL (4.1-5.3); Red Cell Distribution Width 18.9 % (12.1-15.1); White Blood Count 7.9 10^3/uL (4.0-10.0)
[2020-11-18 11:50] LABS: Alanine Aminotransferase 10 U/L (0-33); Albumin Level 3.4 g/dL (3.5-5.2); Alkaline Phosphatase 150 IU/L (35-105); Anion Gap 14.3 (5-19); Aspartate Amino Transferase 19 U/L (0-32); Blood Urea Nitrogen 10 mg/dL (6-20); Calcium 8.8 mg/dL (8.5-10.5); Carbon Dioxide 26 mmol/L (22-29); Chloride 95 mmol/L (98-107); Globulin 3.6 g/dL (1.3-4.6); Glomerular Filtration Rate 165.7 mL/min (90-130); Glucose 112 mg/dL (65-115); Iron 31 ug/dL (37-145); Magnesium 1.8 mg/dL (1.7-2.3); Osmolality Calculated 272 mOsm/kg (285-295); Percent Saturation 8.1 % (20-50); Potassium 4.3 mmol/L (3.5-5.1); Sodium 131 mmol/L (136-145); Thyroid Stimulating Hormone 0.61 uIU/mL (0.27-4.20); Total Bilirubin 0.3 mg/dL (0.15-1.2); Total Iron Binding Capacity 379 mcg/dl; Unsaturated Iron Binding 348 ug/dL (112-347)
[2020-11-18 12:03] LABS: Estmated Average Glucose 137; Hemoglobin A1C 6.4 % (4.0-6.0)
== END 2020-11-18 10:44 | disposition home or self-care (01) ==
PROVIDERS: PCP Family Medicine; Visit Provider Family Medicine
DX: Z01.89 Encounter for other specified special examinations (principal)
CPT/HCPCS: 36415; 80053; 83036; 83540; 83550; 83735; 84443; 85025

== ENCOUNTER → 2020-12-16 14:29 | Outpatient (BNVA) | payer OTHER, SELFPAY | PROVIDERS: PCP Family Medicine; Visit Provider Orthopaedic Surgery | DX: S82.402A Unspecified fracture of shaft of left fibula, initial encounter for closed fracture; S82.142A Displaced bicondylar fracture of left tibia, initial encounter for closed fracture; X58.XXXA Exposure to other specified factors, initial encounter; Z98.890 Other specified postprocedural states | CPT/HCPCS: 73590 ==

== ENCOUNTER → 2021-01-27 12:59 | Outpatient (BNVA) | payer OTHER, SELFPAY | PROVIDERS: PCP Family Medicine; Visit Provider Physician Assistant | DX: S82.142D Displaced bicondylar fracture of left tibia, subsequent encounter for closed fracture with routine healing (principal); S82.492D Other fracture of shaft of left fibula, subsequent encounter for closed fracture with routine healing; X58.XXXD Exposure to other specified factors, subsequent encounter | CPT/HCPCS: 73590 ==

== ENCOUNTER 2021-03-25 13:49 | Emergency (ER) | payer OTHER, SELFPAY ==
[2021-03-25 14:05] VITALS: BP 168/96; PULSE 86; RESP 16; TEMP 36.4; O2SAT 92; BMI 24.3
--- NOTE | 2021-03-25 14:25 | W.ED.GENADLT ---
HPI - General Adult General: Chief complaint: General Medical Stated complaint: Blood in stool, Pt thinks they need blood Time Seen by Provider: 03/25/21 14:15 History of Present Illness: Ms. Taylor is a 56-year-old lady with history of Ale-en-Y resulting chronic anemia who presents emerged department due to blood in stool. She was out of her medications for approximately 10 days including her PPI. She subsequently developed fairly severe generalized abdominal discomfort worse in the epigastric region. This resolved with resumption of medication however she has noticed some dark stools. She does have a history of GI bleed reports that this is relatively mild. She does have some lightheadedness and headache. Denies chest pain or shortness of breath. Overall the intensity symptoms is mild. Course has been variable. Denies other specific changes in health, exacerbating, relieving factors. Onset (ago): day(s) Location: abdomen Severity: moderate Pain Consistency: now resolved Relieving factors: medication Associated symptoms: Reports headache(s) and other Review of Systems General: Reports: 10 or more systems reviewed and unremarkable except in HPI and below Neuro: Reports: headache(s) PFSH ED PFSH: Medical History Coronary artery disease Diabetes mellitus GERD (gastroesophageal reflux disease) History of coronary artery disease History of fibromyalgia History of hyperlipidemia History of hypertension Hyperlipidemia Hypertension Non-insulin dependent type 2 diabetes mellitus Surgical History History of arthroscopy of right knee History of gastric bypass Family History Other CAD (coronary artery disease) Social History Alcohol intake: current Alcohol intake frequency: holidays/special occasions only Physical Exam Const: COMMON NORMALS: alert GENERAL APPEARANCE: cooperative and well developed HENMT: COMMON NORMALS: normocephalic and atraumatic HEAD & SCALP: normocephalic and atraumatic Eye: COMMON NORMALS: conjunctivae normal CONJUNCTIVA: Yes conjunctivae normal SCLERA: sclerae normal Neck/C-Spine: COMMON NORMALS: supple GENERAL: Yes trachea midline Resp: COMMON NORMALS: normal respiratory effort EFFORT & INSPECTION: Yes able to speak in complete sentences Cardio: COMMON NORMALS: regular rate and regular rhythm RATE: regular rate RHYTHM: regular rhythm GI: COMMON NORMALS: Soft to palpation PALPATION: Yes Soft to palpation and No Tenderness to palpation present (GI) PERCUSSION: normal to percussion Extremity: GENERAL: Yes normal exam except as noted and No edema Neuro: COMMON NORMALS: moves all extremities SENSORIUM/ORIENTATION: Yes alert and No Orientation impaired Psych: COMMON NORMALS: mental status grossly normal and Normal thought process present THOUGHT PROCESS: Normal thought process present Course ED course: - Patient was seen and evaluated by me at bedside - Patient placed on cardiac monitors, IV access obtained - Fluids and antiemetic given, hypertension treatment given - Labs notable for no leukocytosis or other acute hematologic abnormality on initial panel. Metabolic panel with perhaps mild evidence of dehydration, delta troponin is negative. Urinalysis without evidence of infection. - Magnesium is decreased and replenishment ordered - Initial hemoglobin is somewhat confusing given patient's longstanding history of anemia. It seems unlikely that the patient has made such a significant improvement over roughly 4 months though I suppose it is possible. I discussed with lab who apolinar a repeat which was still improved from prior though lower than the previously reported 14. The patient did receive 1 L IV fluids in the interval. She has not had recurrent episodes of bowel movements or any blood per rectum while in the emergency department leading me to believe that this is not an true acute drop of 2.5 g/dL of hemoglobin. I discussed this laboratory finding at length with the patient. - Imaging notable for negative head CT which was obtained given patient's headache and description of symptoms. Based on abdominal exam and resolution of previously noted GI symptoms and history I do not feel that abdominal imaging is warranted at this time, patient comfortable with this. - Upon serial reexamination after treatment the patient was somewhat improved - Based on patient history, evaluation, labs, and imaging as interpreted the most likely cause of the patient's condition is somewhat unclear. She presents with headache associated with high blood pressure which improved with treatment. The GI bleeding and abdominal discomfort which resolved prior to ED evaluation is likely secondary to her missing her medications. - The results of ED evaluation were discussed with the patient including prescriptions and/or symptomatic cares (if applicable) including appropriate and responsible use, followup plan, and return precautions. The patient verbalized understanding and felt safe for discharge. - Patient discharged in satisfactory condition. Note: Click bubbles or prepopulated aden in note writing are used for assistance with data collection and billing and are inherently more limited than narrative and other text portions of this note. Please use narrative for additional clinical history and defer to narrative/free test for any case of contradictory information. If information appears in only free text or click bubble it should be considered present or absent as reported. Please contact note movie writer for clarifications of clinical information or contradictory information. MDM is a brief summary, contradictory or erroneous seeming information should be clarified and full note should be reviewed. Vital Signs: Vital signs: Vital Signs Temperature 97.5 F L 03/25/21 14:05 Pulse Rate 71 03/25/21 20:19 Respiratory Rate 18 03/25/21 20:19 Blood Pressure 172/99 03/25/21 22:20 Pulse Oximetry 92 03/25/21 14:05 MDM - General Adult Medical Decision Making 56-year-old lady with history of anemia GI bleed presenting with headache and generalized weakness which the patient reports is concerning for needing blood or history of magnesium being low. Patient found to have normal hemoglobin which is very inconsistent with prior though somewhat more believable on repeat. No indication for transfusion. Magnesium is low which patient reports similar symptoms with prior episodes, replenishment ordered. Patient has benign abdominal exam and has had resolution of GI bleed symptoms and abdominal symptoms days prior to ED evaluation, likely secondary to missing dosages of PPI. Overall satisfactory for outpatient follow-up with GI with strict return precautions. Medical Records I reviewed the patient's medical records. Lab Data I reviewed the patient's lab results. : 03/25/21 21:22 03/25/21 15:[address] 03/25/21 16:24 IMPRESSION: No acute intracranial abnormality. Laboratory Results WBC 9.1 10^3/uL (4.0-10.0) 03/25/21 15:34 RBC 4.60 10^6/uL (4.1-5.3) 03/25/21 15:34 Hgb 11.5 g/dL (11.5-15.3) 03/25/21 21:22 Hct 34.9 % (37.0-47.0) L 03/25/21 21:22 MCV 93.0 fl (81-99) 03/25/21 15:34 MCH 30.4 pg (28.0-34.0) 03/25/21 15:34 MCHC 32.7 g/dL (30.0-36.0) 03/25/21 15:34 RDW 22.2 % (12.1-15.1) H 03/25/21 15:34 Plt Count 311 10^3/cmm (130-400) 03/25/21 15:34 MPV 10.0 fL (7.4-10.4) 03/25/21 15:34 Neut % (Auto) 64.0 % 03/25/21 15:34 Lymph % (Auto) 25.7 % 03/25/21 15:34 [place] % (Auto) 6.8 % 03/25/21 15:34 Eos % (Auto) 2.4 % 03/25/21 15:34 Baso % (Auto) 0.9 % 03/25/21 15:34 Neut # (Auto) 5.84 10^3/uL (1.8-7.7) 03/25/21 15:34 Lymph # (Auto) 2.4 10^3/uL (0.8-4.8) 03/25/21 15:34 [place] # (Auto) 0.6 10^3/uL (0.2-0.9) 03/25/21 15:34 Eos # (Auto) 0.2 10^3/uL (0.0-0.8) 03/25/21 15:34 Baso # (Auto) 0.1 10^3/uL (0.0-0.1) 03/25/21 15:34 Nucleated RBC % (auto) 0 % 03/25/21 15:34 Nucleated RBCs # 0.0 /100WBC 03/25/21 15:34 Sodium 133 mmol/L (136-145) L 03/25/21 15:34 Potassium 3.5 mmol/L (3.5-5.1) 03/25/21 15:34 Chloride 92 mmol/L (98-107) L 03/25/21 15:34 Carbon Dioxide 27 mmol/L (22-29) 03/25/21 15:34 Anion Gap 17.5 (5-19) 03/25/21 15:34 BUN 7 mg/dL (6-20) 03/25/21 15:34 Creatinine 0.6 mg/dL (0.5-0.9) 03/25/21 15:34 GFR Calculation 103.4 mL/min (90-130) 03/25/21 15:34 Glucose 116 mg/dL (65-115) H 03/25/21 15:34 Calculated Osmolality 275 mOsm/kg (285-295) L 03/25/21 15:34 Calcium 9.1 mg/dL (8.5-10.5) 03/25/21 15:34 Magnesium 1.6 mg/dL (1.7-2.3) L 03/25/21 19:20 Total Bilirubin 0.4 mg/dL (0.15-1.2) 03/25/21 15:34 AST 28 U/L (0-32) 03/25/21 15:34 ALT 20 U/L (0-33) 03/25/21 15:34 Alkaline Phosphatase 132 IU/L (35-105) H 03/25/21 15:34 Troponin T Baseline 14 ng/L (0-10) H 03/25/21 15:34 Troponin T 120 Minute 10.14 ng/L (0-10) H 03/25/21 19:20 Delta Troponin T -3.86 ABS# (0-10) L 03/25/21 19:20 Total Protein 7.9 g/dL (6.6-8.7) 03/25/21 15:34 Albumin 4.8 g/dL (3.5-5.2) 03/25/21 15:34 Globulin 3.1 g/dL (1.3-4.6) 03/25/21 15:34 Lipase 15 U/L (13-60) 03/25/21 15:34 Urine Color Yellow (Yellow) 03/25/21 19:35 Urine Appearance Clear (CLEAR) 03/25/21 19:35 Urine pH 7 (5-7) 03/25/21 19:35 Ur Specific [place] 1.005 (1.005-1.030) 03/25/21 19:35 Urine Protein Neg (Negative) 03/25/21 19:35 Urine Glucose (UA) Norm (Normal) 03/25/21 19:35 Urine Ketones Negative (Negative) 03/25/21 19:35 Urine Blood Neg (Negative) 03/25/21 19:35 Urine Nitrate Negative (Negative) 03/25/21 19:35 Urine Bilirubin Neg (Negative) 03/25/21 19:35 Urine Urobilinogen Neg mg/dL (Negative) 03/25/21 19:35 Ur Leukocyte Esterase Negative (Negative) 03/25/21 19:35 EKG Data EKG 1: I personally reviewed and interpreted this EKG as follows: EKG interpretation date: 03/25/21 EKG interpretation time: 17:34 Interpretation: Twelve-lead EKG shows a regular rhythm at a rate of 75. RI interval 1 60, QRS duration 90, QTc 429. Left axis deviation. Interpretation: Sinus rhythm. Nonspecific ST segment abnormalities Computer generated interpretation: Head CT 03/25/21 16:24 IMPRESSION: No acute intracranial abnormality. EKG 2: I personally reviewed and interpreted this EKG as follows: EKG interpretation date: 03/25/21 EKG interpretation time: 19:37 Interpretation: Twelve-lead EKG shows a regular rhythm at a rate of 69. RI interval 159, QRS duration 86, QTc 447. Left axis deviation. Interpretation: Sinus rhythm. Nonspecific ST segment abnormalities. Computer generated interpretation: Head CT 03/25/21 16:24 IMPRESSION: No acute intracranial abnormality. Discharge Plan Discharge Patient Disposition: Home Clinical Impression: Headache, Weakness, GI bleed, Hypertension Condition: Stable Prescriptions: No Action atorvastatin 80 mg Tablet 80 mg PO DAILY Qty: 0 0RF lisinopril 20 mg Tablet 20 mg PO DAILY Qty: 0 0RF clopidogrel [Plavix] 75 mg Tablet 75 mg PO DAILY Qty: 0 0RF calcium carbonate-vitamin D3 [Calcium + D] 600 mg(1,500mg) -200 unit Tablet 1 tab PO DAILY Qty: 0 0RF gabapentin 800 mg Tablet 800 mg PO TID Qty: 0 0RF pantoprazole 40 mg Tablet,Delayed Release (Dr/Ec) 40 mg PO DAILY Qty: 0 0RF metformin 1,000 mg Tablet 1,000 mg PO BID Qty: 0 0RF aspirin 81 mg Tablet,Chewable 81 mg PO DAILY Qty: 0 0RF ferrous sulfate 134 mg (27 mg iron) Tablet 134 mg PO DAILY Qty: 0 0RF metoprolol tartrate 25 mg Tablet 25 mg PO BID Qty: 0 0RF duloxetine 60 mg Capsule,Delayed Release(Dr/Ec) 60 mg PO DAILY Qty: 0 0RF magnesium oxide 400 mg magnesium Tablet 400 mg PO BID Qty: 0 0RF hydrocodone-acetaminophen 5-325 mg tablet 1 - 2 tab PO .Q4-6H PRN (Reason: Pain) 0RF Discharge Orders: Discharge ED (Routine); Ordered 03/25/21 Ordered By: Bill Bone Referrals: Jacquelyn Jay MD [Primary Care Provider] - Discharge Diet: Usual diet Discharge Activity: Resume usual activity Patient Instructions: Gastrointestinal Bleeding (ED), Acute Headache (ED), Hypertension (ED) Activity Restrictions/Additional Instructions: Thank you for visiting the emergency department. You were seen and evaluated for headache and generalized weakness. The exact cause of your symptoms is unclear. Your initial hemoglobin was, as discussed, very elevated compared to prior and on repeat was still mildly elevated compared to prior. I do not believe that this difference occurred due to active bleeding. Your blood pressure was noted to be very elevated and improved with treatment. Please follow-up with your primary care provider. I will message case management for follow-up with however internal medicine physician who performs GI procedures. Return to the emergency department for worsening symptoms, abdominal pain, blood in stool, lightheadedness, dizziness, chest pain, shortness of breath, or anything else that you are concerned about and feel needs emergency department evaluation. Coding Level of Care Code ED Inspector Insulation for Miguelina Lopez
[2021-03-25 16:05] VITALS: BP 222/114; PULSE 74; RESP 17
[2021-03-25 16:15] LABS: Basophils # 0.1 10^3/uL (0.0-0.1); Basophils % 0.9 %; Eosinophils # 0.2 10^3/uL (0.0-0.8); Eosinophils % 2.4 %; Hematocrit 42.8 % (37.0-47.0); Lymphocytes # 2.4 10^3/uL (0.8-4.8); Lymphocytes % 25.7 %; Mean Corpuscular HGB Conc 32.7 g/dL (30.0-36.0); Mean Corpuscular Hemoglobin 30.4 pg (28.0-34.0); Monocytes # 0.6 10^3/uL (0.2-0.9); Monocytes % 6.8 %; Neutrophils # 5.84 10^3/uL (1.8-7.7); Nucleated Red Blood Cells % 0 %; Platelet Count 311 10^3/cmm (130-400); Red Cell Distribution Width 22.2 % (12.1-15.1); White Blood Count 9.1 10^3/uL (4.0-10.0)
--- NOTE | 2021-03-25 16:23 | ECG_ITS ---
[facility] Test Date: 2021-03-25 Pat Name: Laisha Taylor Department: Room: Gender: Female Teacher Citizenship: : 1965 Requested By: Bill Bone Order Number: [id number] Grimaldo MD: FLORESITA CARR Measurements Intervals [place] Rate: 75 P: 61 ME: 160 QRS: -15 QRSD: 90 T: 46 QT: 401 QTc: 448 Interpretive Statements SINUS RHYTHM POSSIBLE LEFT ATRIAL ENLARGEMENT [-0.1mV P-WAVE IN V1/V2] ANTEROLATERAL MYOCARDIAL INFARCTION , OF INDETERMINATE AGE [40+ ms Q WAVE IN I/aVL/V3-V6] Compared to ECG 10/31/2020 10:13:22 No significant changes Electronically Signed On 03-25-2021 22:54:34 BATCH AND FURNACE OPERATOR by FLORESITA CARR [email or web address] township district memorial [email or web address]/store/[id number] f
[2021-03-25 16:24] LABS: Alanine Aminotransferase 20 U/L (0-33); Albumin Level 4.8 g/dL (3.5-5.2); Alkaline Phosphatase 132 IU/L (35-105); Anion Gap 17.5 (5-19); Aspartate Amino Transferase 28 U/L (0-32); Blood Urea Nitrogen 7 mg/dL (6-20); Calcium 9.1 mg/dL (8.5-10.5); Carbon Dioxide 27 mmol/L (22-29); Chloride 92 mmol/L (98-107); Globulin 3.1 g/dL (1.3-4.6); Glomerular Filtration Rate 103.4 mL/min (90-130); Glucose 116 mg/dL (65-115); Lipase 15 U/L (13-60); Osmolality Calculated 275 mOsm/kg (285-295); Potassium 3.5 mmol/L (3.5-5.1); Sodium 133 mmol/L (136-145); Total Bilirubin 0.4 mg/dL (0.15-1.2); Total Protein 7.9 g/dL (6.6-8.7)
--- NOTE | 2021-03-25 16:24 | CTR_ITS ---
PROCEDURE INFORMATION: Exam: CT Head Without Contrast Exam date and time: 03/25/2021 4:24 PM Age: 56 years old Clinical indication: Pain; Headache not specified; Patient HX: C/O occipital JAIN TECHNIQUE: Imaging protocol: Computed tomography of the head without contrast. Radiation optimization: All CT scans at this facility use at least one of these dose optimization techniques: automated exposure control; mA and/or kV adjustment per patient size (includes targeted exams where dose is matched to clinical indication); or iterative reconstruction. COMPARISON: No relevant prior studies available. RADIATION DOSE METRICS: Total DLP (mGy-cm): 790.4 FINDINGS: Brain: Normal. No hemorrhage. Unremarkable white matter. No mass effect. Cerebral ventricles: No ventriculomegaly. Paranasal sinuses: Visualized sinuses are unremarkable. No fluid levels. Mastoid air cells: Visualized mastoid air cells are well aerated. Bones/joints: Unremarkable. No acute fracture. Soft tissues: Unremarkable. CT/CT head wo con* [id number] IMPRESSION: No acute intracranial abnormality.
[2021-03-25 17:19] LABS: Troponin(5th) Baseline 14 ng/L (0-10)
--- NOTE | 2021-03-25 18:23 | ECG_ITS ---
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 System Analyst: : 1965 Requested By: Bill Bone Order Number: [id number] Reading MD: FLORESITA CARR Measurements Intervals [place] Rate: 76 P: 52 [place]: 145 QRS: -28 QRSD: 89 T: 41 QT: 400 QTc: 452 Interpretive Statements SINUS RHYTHM INFERIOR MYOCARDIAL INFARCTION , PROBABLY OLD [40+ ms Q WAVE AND/OR ST/T ABNORMALITY IN II/aVF] ANTEROLATERAL MYOCARDIAL INFARCTION , PROBABLY OLD [40+ ms Q WAVE IN I/aVL/V3-V6] Compared to ECG 03/25/2021 17:33:35 No significant changes Electronically Signed On 03-25-2021 22:55:59 ENGAGEMENT DIRECTOR by FLORESITA CARR [id number]
[2021-03-25] MEDS: labetalol 5 mg/mL SDV 20mL 10 MG IVP (19:12)
[2021-03-25] MEDS: sodium chloride 0.9% 1,000 ML 999 ML IV (19:30)
[2021-03-25 19:55] LABS: Add Urine Microscopic? NO; Charge for UA Resulting for Rev
[2021-03-25 19:57] LABS: Troponin 5 2HR 10.14 ng/L (0-10)
[2021-03-25 19:58] LABS: Magnesium 1.6 mg/dL (1.7-2.3)
[2021-03-25 19:59] LABS: Bilirubin Urine Neg (Negative); Blood Urine Neg (Negative); Glucose Urine UA Norm (Normal); Ketones Urine Negative (Negative); Leukocyte Esterase Urine Negative (Negative); Nitrate Urine Negative (Negative); Protein Urine Neg (Negative); Specific Gravity, Urine 1.005 (1.005-1.030); Urine Appearance Clear (CLEAR); Urine Color Yellow (Yellow); Urobilinogen Urine Neg (Negative); pH Urine 7 (5-7)
[2021-03-25 20:00] LABS: Troponin 5 2HR Delta -3.86 ABS# (0-10)
[2021-03-25 20:19] VITALS: BP 185/88; PULSE 71; RESP 18
[2021-03-25] MEDS: magnesium sulfate premix 2 GM/50 ML PIGGYBACK IV (20:23)
[2021-03-25] MEDS: acetaminophen 500 mg Tablet 1000 MG PO (20:23)
[2021-03-25 21:47] LABS: Hematocrit 34.9 % (37.0-47.0); Hemoglobin 11.5 g/dL (11.5-15.3)
[2021-03-25 22:20] VITALS: BP 172/99
--- NOTE | 2021-03-25 22:23 | ECG_ITS ---
[facility] Test Date: 2021-03-25 Pat Name: Laisha Taylor Department: Room: Gender: Female Front Desk Clerk: : 1965 Requested By: Bill Bone Order Number: [id number] Re MD: FLORESITA CARR Measurements Intervals [place] Rate: 69 P: 48 [place]: 159 QRS: -17 QRSD: 86 T: 48 QT: 427 QTc: 460 Interpretive Statements SINUS RHYTHM POSSIBLE LEFT ATRIAL ENLARGEMENT [-0.1mV P-WAVE IN V1/V2] INFERIOR MYOCARDIAL INFARCTION , OF INDETERMINATE AGE [40+ ms Q WAVE AND/OR ST/T ABNORMALITY IN II/aVF] ANTEROLATERAL MYOCARDIAL INFARCTION , PROBABLY OLD [40+ ms Q WAVE IN I/aVL/V3-V6] Compared to ECG 03/25/2021 18:23:11 No significant changes Electronically Signed On 03-25-2021 22:55:48 DUST CONTROL ENGINEER by FLORESITA CARR [id number]
--- NOTE | 2021-03-28 10:55 | DCPLANNER ---
loan operations manager had message to schedule a followup appointment for patient with Dr. Andujar. loan operations manager called the office of Dr. Andujar, spoke with Hilary, gave clinic patients information. A follow up appointment was scheduled for Monday, April 05, 2021 at 2:[address] Andujar. loan operations manager called phone number [phone], leather case finisher was unable to speak with patient on this number or leave a voicemail for patient, this number has calling restrictions. loan operations manager than called phone number [phone], unable to speak with patients or leave a voicemail for patient, this number did not have a voicemail box set up. loan operations manager was unable to reach patient or leave a voicemail for patient. loan operations manager called clinic, spoke with Sandeep, and cancelled the appointment.
== END 2021-03-25 22:22 | disposition home or self-care (01) ==
PROVIDERS: Emergency Provider Emergency Medicine; PCP Family Medicine
DX: K92.2 Gastrointestinal hemorrhage, unspecified (principal); I10 Essential (primary) hypertension; R53.1 Weakness; R51.9 Headache, unspecified; Z79.02 Long term (current) use of antithrombotics/antiplatelets; Z79.84 Long term (current) use of oral hypoglycemic drugs; Z79.82 Long term (current) use of aspirin; I25.10 Atherosclerotic heart disease of native coronary artery without angina pectoris; E11.9 Type 2 diabetes mellitus without complications; E78.5 Hyperlipidemia, unspecified
CPT/HCPCS: 70450; 80053; 81003; 83690; 83735; 84484; 85014; 85018; 85025; 93005; 96365; 96375; 99284; J3475; J3490; J7030

== ENCOUNTER 2021-09-27 06:59 | Emergency (ER) | payer OTHER, SELFPAY ==
--- NOTE | 2021-09-27 07:05 | XRR_ITS ---
PROCEDURE INFORMATION: Exam: XR Left Foot Exam date and time: 09/27/2021 7:30 AM Age: 56 years old Clinical indication: Pain; Left; Patient HX: Stepped on sharp rock, foot twisted TECHNIQUE: Imaging protocol: Radiologic exam of the Left foot. Views: 3 or more views. COMPARISON: CR XR tibia fibula LT 2V [id number] 01/27/2021 1:06 PM FINDINGS: Bones/joints: There is slight cortical irregularity and increased sclerosis of the 3rd metatarsal neck, concerning for nondisplaced fracture. No dislocation. Joint spaces are well maintained. Soft tissues: Swelling of the soft tissues about the plantar aspect of the midfoot noted.. XR/XR foot LT min 3V* [id number] IMPRESSION: Imaging findings concerning for nondisplaced fracture of the 3rd metatarsal neck. Correlation for point tenderness is recommended.
[2021-09-27 07:08] VITALS: BP 167/87; PULSE 62; RESP 16; TEMP 36.6; O2SAT 99; BMI 22.7
--- NOTE | 2021-09-27 07:53 | W.ED.EXTPRO ---
HPI - Extremity Problem General: Chief complaint: Extremity Injury, Lower Stated complaint: left foot hurts bad Time Seen by Provider: 09/27/21 07:01 Source: patient Mode of arrival: ambulatory Limitations: no limitations History of Present Illness: 56 yo female who presents to the emergency room with complaints of L foot pain. [place] foot caught between some rocks she twisted it has been painful since she has had some weightbearing most of the pain is distals part of the forefoot. She has no deformity minimal swelling. Secondarily she has a burn on the volar aspect of her right forearm just proximal to the wrist crease blistered initially she is unsure of her last tetanus. MD Complaint: extremity pain and extremity swelling Onset (ago): day(s) (3) Location: upper extremity (Right forearm) and lower extremity (Left foot) Quality: aching Radiation: none Relieving factors: rest Exacerbating factors: weight bearing and walking Associated symptoms: Deny arthralgias, chest pain, fever(s), myalgias, rash or short of breath Review of Systems Const: Denies: fever(s), chills, fatigue or malaise ENMT: Denies: throat pain, ear or mastoid pain, nasal discharge or nasal congestion Card: Denies: chest pain Resp: Denies: dyspnea, productive cough or non-productive cough GI: Denies: abdominal pain, nausea, vomiting, hematemesis, coffee ground emesis, diarrhea, constipation, bloating, hematochezia or melena : Denies: flank pain, difficulty voiding, dysuria, urinary frequency or urinary urgency Skin/Breast: Denies: rash PFSH ED PFSH: Medical History Coronary artery disease Diabetes mellitus GERD (gastroesophageal reflux disease) History of coronary artery disease History of fibromyalgia History of hyperlipidemia History of hypertension Hyperlipidemia Hypertension Non-insulin dependent type 2 diabetes mellitus Surgical History History of arthroscopy of right knee History of gastric bypass Family History Other CAD (coronary artery disease) Social History Alcohol intake: current Alcohol intake frequency: holidays/special occasions only Female Reproductive History: Date of last menstrual period: 09/27/10 Physical Exam Const: COMMON NORMALS: no acute distress GENERAL APPEARANCE: cooperative and comfortable ORIENTATION/CONSCIOUSNESS: Yes awake, Yes oriented to person, Yes oriented to place and Yes oriented to time HENMT: COMMON NORMALS: normocephalic, atraumatic and hearing grossly normal bilaterally HEAD & SCALP: normocephalic and atraumatic Eye: COMMON NORMALS: Equal, round and reactive pupils present, EOMs intact bilaterally, conjunctivae normal and no scleral icterus CONJUNCTIVA: Yes conjunctivae normal PUPIL: Yes Equal, round and reactive pupils present Resp: COMMON NORMALS: normal respiratory effort, No retractions, No use of accessory muscles and clear to auscultation bilaterally AUSCULTATION: clear to auscultation bilaterally Cardio: COMMON NORMALS: regular rate, regular rhythm and No murmurs present (Cardio) RATE: regular rate RHYTHM: regular rhythm Extremity: COMMON NORMALS: normal to inspection, capillary refill normal, no clubbing, cyanosis or edema, no calf tenderness and no pedal edema OTHER: Mild discomfort with palpation along the left second and third distal metatarsals no deformity no ecchymosis patient is able to dorsi and plantarflex without difficulty. Examination of the right wrist patient has a 1 inch x 2-1/2 inch burn that is had blistering it is D removed there is no sign infection no induration Neuro: SENSORIUM/ORIENTATION: Yes oriented to person, Yes oriented to place and Yes oriented to time Skin: COMMON NORMALS: no rashes or lesions noted GENERAL SKIN EXAM: no rashes or lesions noted Course Vital Signs: Vital signs: Vital Signs Temperature 97.9 F 09/27/21 07:08 Pulse Rate 62 09/27/21 07:08 Respiratory Rate 16 09/27/21 07:08 Blood Pressure 167/87 09/27/21 07:08 Pulse Oximetry 99 09/27/21 07:08 MDM - Extremity (Nontraumatic) Medical Decision Making Burn care apply topical mupirocin twice daily until healed Anti-inflammatories for the foot follow-up with primary care if not improving After patient been discharged radiology report came back suspicious for distal third metatarsal fracture. Patient was contacted and placed in a postop shoe referred to podiatry Medical Records I reviewed the patient's medical records. Lab Data I reviewed the patient's lab results. Radiology Impressions Foot X-Ray 09/27/21 07:05 IMPRESSION: Imaging findings concerning for nondisplaced fracture of the 3rd metatarsal neck. Correlation for point tenderness is recommended. Discharge Plan Discharge Patient Disposition: Home Clinical Impression: Acute foot pain, Burn Condition: Stable Prescriptions: New mupirocin 2 % ointment 1 applic topical BID Qty: 15 0RF No Action atorvastatin 80 mg Tablet 80 mg PO DAILY Qty: 0 lisinopril 20 mg Tablet 20 mg PO DAILY Qty: 0 clopidogrel [Plavix] 75 mg Tablet 75 mg PO DAILY Qty: 0 calcium carbonate-vitamin D3 [Calcium + D] 600 mg(1,500mg) -200 unit Tablet 1 tab PO DAILY Qty: 0 gabapentin 800 mg Tablet 800 mg PO TID Qty: 0 pantoprazole 40 mg Tablet,Delayed Release (Dr/Ec) 40 mg PO DAILY Qty: 0 metformin 1,000 mg Tablet 1,000 mg PO BID Qty: 0 aspirin 81 mg Tablet,Chewable 81 mg PO DAILY Qty: 0 ferrous sulfate 134 mg (27 mg iron) Tablet 134 mg PO DAILY Qty: 0 metoprolol tartrate 25 mg Tablet 25 mg PO BID Qty: 0 duloxetine 60 mg Capsule,Delayed Release(Dr/Ec) 60 mg PO DAILY Qty: 0 magnesium oxide 400 mg magnesium Tablet 400 mg PO BID Qty: 0 hydrocodone-acetaminophen 5-325 mg tablet 1 - 2 tab PO .Q4-6H PRN (Reason: Pain) Discharge Orders: Discharge ED (Routine); Ordered 09/27/21 Ordered By: Mauricio Ochoa Referrals: Jacquelyn Jay MD [Primary Care Provider] - Discharge Diet: Usual diet Discharge Activity: Limit activity as instructed Patient Instructions: Opioid Safety Activity Restrictions/Additional Instructions: Anti-inflammatory Kaushal's [id number] as needed to relieve foot pain. You can also use your previously prescribed pain medications. Your tetanus was updated apply topical antibiotic ointment twice daily to the burn until healed. If the foot pain persists follow-up with your primary care doctor. Coding Level of Care Code ED Division Service Manager for g Fwd Exam Detailed
[2021-09-27] MEDS: tetanus-dipt-pertussis 0.5 mL SDV IM (07:54)
--- NOTE | 2021-09-28 10:00 | DCPLANNER ---
Addendum entered by Ya Guerrero 09/30/21 13:09: manager treasury received the following message from the ortho clinic regarding follow up appointment: No vm/mailed letter for pt to call and schedule an appt with Dr. Rodriguez Original Note: manager treasury had message to schedule a follow up appointment for patient with ortho. manager treasury sent patients information to the front office staff at ortho. Patients information will be printed and reviewed. Clinic will call patient with appointment information.
== END 2021-09-27 08:38 | disposition home or self-care (01) ==
PROVIDERS: Emergency Provider Family Medicine; PCP Family Medicine
DX: M79.672 Pain in left foot (principal); T23.271A Burn of second degree of right wrist, initial encounter; X08.8XXA Exposure to other specified smoke, fire and flames, initial encounter; I25.10 Atherosclerotic heart disease of native coronary artery without angina pectoris; E11.9 Type 2 diabetes mellitus without complications; E78.5 Hyperlipidemia, unspecified; I10 Essential (primary) hypertension; Z79.84 Long term (current) use of oral hypoglycemic drugs; Z79.02 Long term (current) use of antithrombotics/antiplatelets; Z79.82 Long term (current) use of aspirin; Z23 Encounter for immunization
CPT/HCPCS: 73630; 90471; 90715; 99283